=== PATIENT | male | born 1940 | race Caucasian/White ===

== ENCOUNTER 2019-03-21 12:07 | Inpatient (IN) | payer MEDICARE ==
[2019-03-21] MEDS ORDERED: SODIUM CHLORIDE 0.9% 500 ML 500 ML IV STA (12:18)
[2019-03-21] MEDS ORDERED: ONDANSETRON 4 MG/2 ML VIAL IVP STA (12:19)
[2019-03-21] MEDS ORDERED: MORPHINE SULFATE 4 MG/ML SYRINGE IVP STA ×2 (12:19→14:18)
[2019-03-21 12:58] LABS: Basophils # (A) 0.1 k/uL (0-0.2); Basophils % (A) 0 %; Eosinophils # (A) 0.2 k/uL (0-0.7); Eosinophils % (A) 1 %; HCT 47.6 % (39.0-53.0); HGB 15.6 gm/dL (13.0-17.5); Lymphocytes # (A) 0.8 k/uL (1.0-4.8); Lymphocytes % (A) 4 %; MCHC 32.8 g/dL (31.0-37.0); MCV 97.6 fL (80.0-100.0); Mean Platelet Volume 9.3; Monocytes # (A) 0.8 k/uL (0-1.0); Monocytes % (A) 4 %; Neutrophils # (A) 20.2 k/uL (1.3-7.7); Neutrophils % (A) 91 %; Platelet Count 220 k/uL (150-450); RBC 4.87 m/uL (4.30-5.90); RDW 12.8 % (11.5-15.5); WBC 22.2 k/uL (3.8-10.6)
[2019-03-21 13:07] LABS: ALT 22 U/L (21-72); AST 25 U/L (17-59); African American GFR (CKD) >90 (>60 ml/min/1.73 sqM); Albumin 4.3 g/dL (3.5-5.0); Alcohol 27 mg/dL; Alkaline Phosphatase 91 U/L (38-126); Anion Gap 11 mmol/L; Blood Urea Nitrogen 18 mg/dL (9-20); Calcium 9.1 mg/dL (8.4-10.2); Carbon Dioxide 21 mmol/L (22-30); Chloride 108 mmol/L (98-107); Glucose 99 mg/dL (74-99); Potassium 4.1 mmol/L (3.5-5.1); Sodium 140 mmol/L (137-145); Total Bilirubin 2.1 mg/dL (0.2-1.3); Total Protein 7.2 g/dL (6.3-8.2)
[2019-03-21 13:17] LABS: INR 0.9 (<1.2); Partial Thromboplastin Time 22.6 sec (22.0-30.0); Prothrombin Time 9.8 sec (9.0-12.0)
--- NOTE | 2019-03-21 13:30 | CT ---
EXAMINATION TYPE: CT brain addy alcaraz DATE OF EXAM: 03/21/2019 COMPARISON: None HISTORY: 78-year-old male pain after Fall from aprox [address] DLP: 1396.4 mGycm Automated exposure control for dose reduction was used. Technique: Examination of the head was done in axial plane without intravenous contrast. Coronal and sagittal reconstructions performed. CT of the cervical spine was obtained in axial plane without intravenous injection of contrast mater ial. Coronal and sagittal reformatted images were obtained from the axial views for evaluation of f ractures, spinal alignment and canal. FINDINGS: Head: There is no evidence of acute intracranial hemorrhage, acute ischemic changes, mass, mass-effect, or extra-axial fluid collection. There is no effacement of cerebral sulci or basal subarachnoid cister ns. There is no hydrocephalus. There is no midline shift. Escalante-white matter distinction is preserv ed. Mild to moderate cerebral cortical volume loss. Mild patchy white matter hypodensities in both cerebr al hemispheres. Mucosal thickening ethmoid air cells and trace within the left maxillary sinus. Rightward nasal septa l deviation. Orbits and globes are intact. Mastoid air cells well pneumatized. No calvarial fracture. Cervical spine: No craniocervical junction of the body, predental space widening, or prevertebral soft tissue swellin g. Degenerative changes at the C1 dens articulation. Moderate disc/endplate degenerative change throughout with scattered facet and uncovertebral joint ar thropathy. Disc osteophyte complex C3-C4 causes mild to moderate focal central spinal canal stenosis. Alignment is maintained. No acute fracture of the cervical spine. Vertebral moderate mild bilateral neuroforaminal stenoses, more severe on the right at C5-C6 and mode rate to severe on the right at C6-C7. Sagittal and coronal reformatted images confirm above findings. COMBINED IMPRESSION: 1. Mild to moderate cerebral atrophy and mild changes of chronic small vessel ischemic disease. No ac kim intracranial abnormality seen. 2. No acute fracture or malalignment of the cervical spine. Moderate multilevel spondylotic change. 3. Moderate chronic ethmoid sinus disease.
--- NOTE | 2019-03-21 13:34 | ED ---
Fall HPI - General Chief Complaint: Fall Stated Complaint: Fall Time Seen by Provider: 03/21/19 12:09 Source: patient, EMS, RN notes reviewed Mode of arrival: EMS Limitations: physical limitation - History of Present Illness Initial Comments: This a 78-year-old male presents emergency department via EMS chief complaint of a fall. Patient states that he is climbing up a ladder to a tree stand states that he had a chair in another hand states that he fell approximately 12-15 feet. Patient states he fell onto his left hip. Patient complains of bilateral left hip pain he denies head injury no loss conscious denies back, upper extremity injury. Patient states she's had no prior hip or pelvic fracture. Patient has no complaints of chest pain or shortness of breath. Patient denies benign blood thinners. Patient is went of abdominal pain including nausea vomiting diarrhea constipation. - Related Data Home Medications Medication Instructions Recorded Confirmed No Known Home Medications 03/21/19 03/21/19 Allergies Allergy/AdvReac Type Severity Reaction Status Date / Time No Known Allergies Allergy Verified 03/21/19 12:18 Review of Systems ROS Statement: Those systems with pertinent positive or pertinent negative responses have been documented in the HPI. ROS Other: All systems not noted in ROS Statement are negative. Past Medical History Past Medical History: No Reported History Additional Past Medical History / Comment(s): diverticulitis History of Any Multi-Drug Resistant Organisms: None Reported Past Surgical History: Hernia Repair Past Psychological History: No Psychological Hx Reported Smoking Status: Former smoker Past Alcohol Use History: Occasional Past Drug Use History: None Reported General Exam Limitations: no limitations General appearance: alert, in no apparent distress Head exam: Present: atraumatic, normocephalic, normal inspection Eye exam: Present: normal appearance, PERRL, EOMI. Absent: scleral icterus, conjunctival injection, periorbital swelling ENT exam: Present: normal exam, normal oropharynx, mucous membranes moist, TM's normal bilaterally, normal external ear exam Neck exam: Present: normal inspection. Absent: tenderness, meningismus, full ROM (Patient c-collar), lymphadenopathy Respiratory exam: Present: normal lung sounds bilaterally. Absent: respiratory distress, wheezes, rales, rhonchi, stridor, chest wall tenderness Cardiovascular Exam: Present: regular rate, normal rhythm, normal heart sounds. Absent: systolic murmur, diastolic murmur, rubs, gallop, clicks GI/Abdominal exam: Present: soft, normal bowel sounds. Absent: distended, tenderness, guarding, rebound, rigid Extremities exam: Present: other (Left hip is tender with palpation, leg is in a flexed position, neurovascular intact there is no obvious deformities upper or lower extremity otherwise) Back exam: Present: full ROM. Absent: tenderness, paraspinal tenderness, ve rtebral tenderness Neurological exam: Present: alert, oriented X3, CN II-XII intact, reflexes normal. Absent: motor sensory deficit Skin exam: Present: warm, dry, intact, normal color. Absent: rash Course Vital Signs 03/21/19 12:18 Temperature 98.0 F Pulse Rate 72 Respiratory 20 Rate Blood Pressure 199/96 O2 Sat by Pulse 98 Oximetry Medical Decision Making - Medical Decision Making 78 show male presents for a fall. X-ray, CT, labs are obtained. Patient has evidence of left IT fracture. I did discuss the case with on-call orthopedics in which the patient will be admitted patient will have surgical clearance by hospitalist - Lab Data Result diagrams: 03/21/19 12:42 03/21/19 12:42 Lab Results 03/21/19 03/21/19 03/21/19 Range/Units 12:42 12:42 12:42 WBC 22.2 H (3.8-10.6) k/uL RBC 4.87 (4.30-5.90) m/uL Hgb 15.6 (13.0-17.5) gm/dL Hct 47.6 (39.0-53.0) % MCV 97.6 (80.0-100.0) fL MCH 32.0 (25.0-35.0) pg MCHC 32.8 (31.0-37.0) g/dL RDW 12.8 (11.5-15.5) % Plt Count 220 (150-450) k/uL Neutrophils % 91 % Lymphocytes % 4 % Monocytes % 4 % Eosinophils % 1 % Basophils % 0 % Neutrophils # 20.2 H (1.3-7.7) k/uL Lymphocytes # 0.8 L (1.0-4.8) k/uL Monocytes # 0.8 (0-1.0) k/uL Eosinophils # 0.2 (0-0.7) k/uL Basophils # 0.1 (0-0.2) k/uL PT 9.8 (9.0-12.0) sec INR 0.9 (<1.2) APTT 22.6 (22.0-30.0) sec Sodium 140 (137-145) mmol/L Potassium 4.1 (3.5-5.1) mmol/L Chloride 108 H (98-107) mmol/L Carbon Dioxide 21 L (22-30) mmol/L Anion Gap 11 mmol/L BUN 18 (9-20) mg/dL Creatinine 0.68 (0.66-1.25) mg/dL Est GFR (CKD-EPI)AfAm >90 (>60 ml/min/1.73 sqM) Est GFR (CKD-EPI)NonAf >90 (>60 ml/min/1.73 sqM) Glucose 99 (74-99) mg/dL Calcium 9.1 (8.4-10.2) mg/dL Total Bilirubin 2.1 H (0.2-1.3) mg/dL AST 25 (17-59) U/L ALT 22 (21-72) U/L Alkaline Phosphatase 91 (38-126) U/L Troponin I (0.000-0.034) ng/mL Total Protein 7.2 (6.3-8.2) g/dL Albumin 4.3 (3.5-5.0) g/dL Serum Alcohol 27 mg/dL 03/21/19 Range/Units 12:42 WBC (3.8-10.6) k/uL RBC (4.30-5.90) m/uL Hgb (13.0-17.5) gm/dL Hct (39.0-53.0) % MCV (80.0-100.0) fL MCH (25.0-35.0) pg MCHC (31.0-37.0) g/dL RDW (11.5-15.5) % Plt Count (150-450) k/uL Neutrophils % % Lymphocytes % % Monocytes % % Eosinophils % % Basophils % % Neutrophils # (1.3-7.7) k/uL Lymphocytes # (1.0-4.8) k/uL Monocytes # (0-1.0) k/uL Eosinophils # (0-0.7) k/uL Basophils # (0-0.2) k/uL PT (9.0-12.0) sec INR (<1.2) APTT (22.0-30.0) sec Sodium (137-145) mmol/L Potassium (3.5-5.1) mmol/L Chloride (98-107) mmol/L Carbon Dioxide (22-30) mmol/L Anion Gap mmol/L BUN (9-20) mg/dL Creatinine (0.66-1.25) mg/dL Est GFR (CKD-EPI)AfAm (>60 ml/min/1.73 sqM) Est GFR (CKD-EPI)NonAf (>60 ml/min/1.73 sqM) Glucose (74-99) mg/dL Calcium (8.4-10.2) mg/dL Total Bilirubin (0.2-1.3) mg/dL AST (17-59) U/L ALT (21-72) U/L Alkaline Phosphatase (38-126) U/L Troponin I <0.012 (0.000-0.034) ng/mL Total Protein (6.3-8.2) g/dL Albumin (3.5-5.0) g/dL Serum Alcohol mg/dL Disposition Clinical Impression: Closed left hip fracture, Fall Disposition: ADMITTED IP TO THIS HOSP Condition: Fair Referrals: Claudia Jacobson MD [Primary Care Provider] - 1-2 days
--- NOTE | 2019-03-21 13:40 | XR ---
EXAMINATION TYPE: XR chest 1V portable DATE OF EXAM: 03/21/2019 Comparison: None Clinical History: 78-year-old male pain after trauma Findings: Partially erect exam. Heart is normal size. Aorta and pulmonary vasculature within normal limits. No consolidation, pneumothorax, or pleural effusion. Impression: No acute cardiopulmonary process.
--- NOTE | 2019-03-21 13:42 | XR ---
EXAMINATION TYPE: AP view pelvis and 2 views left hip DATE OF EXAM: 03/21/2019 COMPARISON: NONE HISTORY: 78-year-old male left hip pain after fall, trauma FINDINGS: Mild degenerative change of both hips. There is a comminuted intertrochanteric fracture of the proxim al left femur with mild medial angulation and disruption of the lateral wall. IMPRESSION: Angulated, comminuted intertrochanteric fracture proximal left femur with disruption of the lateral w all. Mild degenerative change at both hips.
[2019-03-21] MEDS ORDERED: HYDROcodone/APAP 5-325MG 1 EACH TAB PO PRN (14:16)
[2019-03-21] MEDS ORDERED: NALOXONE 0.4 MG/ML 1 ML VIAL IV PRN (14:16)
[2019-03-21] MEDS ORDERED: ONDANSETRON 4 MG/2 ML VIAL IVP PRN (14:16)
[2019-03-21] MEDS: SODIUM CHLORIDE 0.9% 1,000 ML IV SCH (14:36)
[2019-03-21 16:27] LABS: Appearance,Urine Clear (Clear); Bilirubin,Urine Negative (Negative); Blood,Urine Negative (Negative); Color,Urine Yellow; Glucose,Urine (UA) Negative (Negative); Ketones,Urine 2+ (Negative); Leukocyte Esterase,Urine Negative (Negative); Nitrite,Urine Negative (Negative); PH, Urine 5.5 (5.0-8.0); Protein,Urine Negative (Negative); Specific Gravity,Urine 1.018 (1.001-1.035); Urobilinogen,Urine <2.0 mg/dL (<2.0)
[2019-03-21 16:38] LABS: Cocaine Screen,Urine Not Detected (NotDetected); Phencyclidine Screen,Urine Not Detected (NotDetected); Urn Cannabinoid Scrn Not Detected (NotDetected)
[2019-03-21 16:39] LABS: Amphetamine Screen,Urine Not Detected (NotDetected); Barbiturate Screen,Urine Not Detected (NotDetected); Benzodiazepines Screen,Urine Not Detected (NotDetected); Methadone Screen, Urine Not Detected (NotDetected); Opiate Screen,Urine Detected (NotDetected); Oxycodone Screen, Urine Not Detected (NotDetected); Tricyclic Antidepressant,Urine Not Detected (NotDetected)
[2019-03-22] MEDS: SODIUM CHLORIDE 0.9% 1,000 ML IV SCH ×2 (03:31→17:20)
--- NOTE | 2019-03-22 09:03 | P.HPOR ---
History of Present Illness H&P Date: 03/22/19 Chief Complaint: Left hip pain This is a 78-year-old male who fell approximately 15 feet from a tree stand on 03/21/2019 landing directly on his left side. He complained of immediate left hip pain. He was brought to the emergency department and on evaluation and x- ray he is found to have a comminuted intertrochanteric fracture with extension into the subtrochanteric area. He is admitted to our service for surgical intervention and care. Past Medical History Past Medical History: No Reported History Additional Past Medical History / Comment(s): Diverticulitis. Pt states he goes to the doctor about every 10 yrs. History of Any Multi-Drug Resistant Organisms: None Reported Past Surgical History: Hernia Repair, Tonsillectomy Additional Past Surgical History / Comment(s): R inguinal hernia repair, colonoscopy, bilateral cataract removal/lens implants Past Anesthesia/Blood Transfusion Reactions: No Reported Reaction Smoking Status: Former smoker - Past Family History Father Additional Family Medical History / Comment(s): Father was a drinker. Mother Additional Family Medical History / Comment(s): Mother had 2 brain tumors. Medications and Allergies Home Medications Medication Instructions Recorded Confirmed Type No Known Home Medications 03/21/19 03/21/19 History Allergies Allergy/AdvReac Type Severity Reaction Status Date / Time No Known Allergies Allergy Verified 03/21/19 12:18 Physical Examination This is a pleasant 78-year-old male in no acute distress. He is alert and oriented 3. Exam of the head neck reveal no obvious deformity. He has full cervical spine motion without difficulty or pain. No pain with palpation about cervical spine or paraspinal musculature. Exam of the upper extremities is unremarkable. He has full shoulder, elbow, wrist and finger motion bilaterally. Neurovascular status the upper extremities is intact. Exam the lower extremities reveals swelling noted to the left thigh. No erythema or ecchymosis at this point. No obvious rotational deformity. Slight shortening to the left leg compared to the right. Pain with any motion of the left hip. He has full foot and ankle motion bilaterally. Neurovascular status to the lower extremities is intact. Results X-rays of the pelvis and left hip reveal a comminuted intertrochanteric fracture of the left hip with extension into the subtrochanteric region. No other fractures identified. - Labs Labs: Abnormal Lab Results - Last 24 Hours (Table) 03/21/19 03/21/19 03/21/19 Range/Units 12:42 12:42 16:15 WBC 22.2 H (3.8-10.6) k/uL Neutrophils # 20.2 H (1.3-7.7) k/uL Lymphocytes # 0.8 L (1.0-4.8) k/uL Chloride 108 H (98-107) mmol/L Carbon Dioxide 21 L (22-30) mmol/L Total Bilirubin 2.1 H (0.2-1.3) mg/dL Urine Ketones 2+ H (Negative) Urine Opiates Screen Detected H (NotDetected) H & H 03/21/19 Range/Units 12:42 Hgb 15.6 (13.0-17.5) gm/dL Hct 47.6 (39.0-53.0) % Coagulation 03/21/19 Range/Units 12:42 INR 0.9 (<1.2) Result Diagrams: 03/21/19 12:42 03/21/19 12:42 Assessment and Plan (1) Intertrochanteric fracture of left hip Current Visit: Yes Status: Acute Code(s): S72.142A - DISPLACED INTERTROCHANT ELLA FRACTURE OF LEFT FEMUR, INIT SNOMED Code(s): 840963136 (2) Closed left hip fracture Current Visit: Yes Status: Acute Code(s): S72.002A - FRACTURE OF UNSP PART OF NECK OF LEFT FEMUR, INIT SNOMED Code(s): 339404037 (3) Fall from height of greater than 3 feet Current Visit: Yes Status: Acute Code(s): W17.89XA - OTHER FALL FROM ONE LEVEL TO ANOTHER, INITIAL ENCOUNTER SNOMED Code(s): 0336663 Plan: The clinical and x-ray findings are discussed the patient. It is recommended that he undergo closed reduction with insertion of long intertrochanteric nail of the left hip. The procedure has been discussed in detail including the possible risks and outcomes. After discussion and consideration the patient elects to proceed with surgery. We are planning or tomorrow if cleared medically.
--- NOTE | 2019-03-22 13:30 | P.CONS ---
History of Present Illness - Reason for Consult Preoperative clearance, leukocytosis. - History of Present Illness 78-year-old is admitted for left hip comminuted fracture intertrochanteric fracture with extension to subacute trochanteric area after a fall of 15 feet on 03/13/2019. Patient quit smoking more than any other ago patient does drink alcohol upon further questioning he admits to drinking alcohol almost on daily basis about the 2-4 beers a day are more sometimes. Patient was pretty functional denied any previous cardiac history denied any active chest pain EKG did not show any acute ST-T wave changes. Patient is a low operative risk if he doesn't have withdrawals tonight. Patient also will be monitored for alcohol withdrawals. Review of Systems REVIEW OF SYSTEMS: CONSTITUTIONAL: No fever, no malaise, no fatigue. HEENT: No recent visual problems or hearing problems. Denied any sore throat. CARDIOVASCULAR: No chest pain, orthopnea, PND, no palpitations, no syncope. PULMONARY: No shortness of breath, no cough, no hemoptysis. GASTROINTESTINAL: No diarrhea, no nausea, no vomiting, no abdominal pain. NEUROLOGICAL: No headaches, no weakness, no numbness. HEMATOLOGICAL: Denies any bleeding or petechiae. GENITOURINARY: Denies any burning micturition, frequency, or urgency. MUSCULOSKELETAL/RHEUMATOLOGICAL: Pain in the left leg as mentioned above ENDOCRINE: Denies any polyuria or polydipsia. The rest of the 14-point review of systems is negative. Past Medical History Past Medical History: No Reported History Additional Past Medical History / Comment(s): Diverticulitis. Pt states he goes to the doctor about every 10 yrs. History of Any Multi-Drug Resistant Organisms: None Reported Past Surgical History: Hernia Repair, Tonsillectomy Additional Past Surgical History / Comment(s): R inguinal hernia repair, colonoscopy, bilateral cataract removal/lens implants Past Anesthesia/Blood Transfusion Reactions: No Reported Reaction Smoking Status: Former smoker - Past Family History Father Additional Family Medical History / Comment(s): Father was a drinker. Mother Additional Family Medical History / Comment(s): Mother had 2 brain tumors. Medications and Allergies Home Medications Medication Instructions Recorded Confirmed Type No Known Home Medications 03/21/19 03/21/19 History Allergies Allergy/AdvReac Type Severity Reaction Status Date / Time No Known Allergies Allergy Verified 03/21/19 12:18 Physical Exam Vitals: Vital Signs Temp Pulse Pulse Resp BP BP Pulse Ox 03/22/19 07:00 98.1 F 64 14 174/89 100 03/22/19 02:34 98.7 F 59 L 18 166/81 99 03/21/19 19:55 98.0 F 75 17 150/66 98 03/21/19 15:00 98 F 69 17 162/80 95 03/21/19 14:45 83 18 143/91 97 03/21/19 14:37 76 18 154/98 98 Intake and Output 03/21/19 03/22/19 03/22/19 22:59 06:59 14:59 Intake Total 180 Output Total 175 800 Balance -175 -620 Intake: Oral 180 Output: Urine 175 800 Other: Voiding Method Bedpan Urinal # Voids 2 PHYSICAL EXAMINATION: GENERAL: The patient is alert and oriented x3, not in any acute distress. Well developed, well nourished. HEENT: Pupils are round and equally reacting to light. EOMI. No scleral icterus. No conjunctival pallor. Normocephalic, atraumatic. No pharyngeal erythema. No thyromegaly. CARDIOVASCULAR: S1 and S2 present. No murmurs, rubs, or gallops. PULMONARY: Chest is clear to auscultation, no wheezing or crackles. ABDOMEN: Soft, nontender, nondistended, normoactive bowel sounds. No palpable organomegaly. MUSCULOSKELETAL: Deferred to orthopedic surgery EXTREMITIES: No cyanosis, clubbing, or pedal edema. NEUROLOGICAL: Gross neurological examination did not reveal any focal deficits. SKIN: No rashes. Results CBC & Chem 7: 03/21/19 12:42 03/21/19 12:42 Labs: Abnormal Lab Results - Last 24 Hours (Table) 03/21/19 Range/Units 16:15 Urine Ketones 2+ H (Negative) Urine Opiates Screen Detected H (NotDetected) Assessment and Plan Plan: Preoperative clearance: Patient is low operative risk as long as he doesn't have withdrawals tonight. No further testing is necessary. Patient should be able to get surgery for intertrochanteric fracture. -Alcohol abuse: Counseling was provided and will monitor for alcohol withdrawal -Leukocytosis secondary to fall no evidence of infection at this time. -DVT prophylaxis: As per primary service
[2019-03-22] MEDS: MORPHINE SULFATE 4 MG/ML SYRINGE IV PRN ×2 (14:18→20:23)
[2019-03-23] MEDS: MORPHINE SULFATE 4 MG/ML SYRINGE IV PRN ×2 (07:02→10:44)
--- NOTE | 2019-03-23 13:47 | P.PN ---
Subjective 78-year-old is admitted for left hip comminuted fracture intertrochanteric fracture with extension to subacute trochanteric area after a fall of 15 feet on 03/13/2019. Patient quit smoking more than any other ago patient does drink alcohol upon further questioning he admits to drinking alcohol almost on daily basis about the 2-4 beers a day are more sometimes. Patient was pretty functional denied any previous cardiac history denied any active chest pain EKG did not show any acute ST-T wave changes. Patient is a low operative risk if he doesn't have withdrawals tonight. Patient also will be monitored for alcohol withdrawals. 03/23/2019 Patient will undergo surgical correction for his intertrochanteric fracture on the left side. Constitutional: Denied any fatigue denied any fever. Cardio vascular: denied any chest pain, palpitations Gastrointestinal denied any nausea vomiting Pulmonary: Denied any shortness of breath cough Neurologic denied any new focal deficits All inpatient medications were reviewed and appropriate changes in these medications as dictated in the interval history and assessment and plan. Objective - Vital Signs Vital signs: Vital Signs Temp 97.8 F 03/23/19 07:00 Pulse 66 03/23/19 07:00 Resp 16 03/23/19 07:00 BP 160/80 03/23/19 07:00 Pulse Ox 96 03/23/19 07:00 Intake & Output 03/22/19 03/23/19 03/23/19 18:59 06:59 18:59 Intake Total 652 Output Total 1950 800 600 Balance -1298 -800 -600 Intake: Oral 652 Output: Urine 1950 800 600 Other: Voiding Method Urinal Urinal # Voids 2 - Exam PHYSICAL EXAMINATION: GENERAL: The patient is alert and oriented x3, not in any acute distress. Well developed, well nourished. HEENT: Pupils are round and equally reacting to light. EOMI. No scleral icterus. No conjunctival pallor. Normocephalic, atraumatic. No pharyngeal erythema. No thyromegaly. CARDIOVASCULAR: S1 and S2 present. No murmurs, rubs, or gallops. PULMONARY: Chest is clear to auscultation, no wheezing or crackles. ABDOMEN: Soft, nontender, nondistended, normoactive bowel sounds. No palpable organomegaly. MUSCULOSKELETAL: Deferred to orthopedic surgery EXTREMITIES: No cyanosis, clubbing, or pedal edema. NEUROLOGICAL: Gross neurological examination did not reveal any focal deficits. SKIN: No rashes. - Labs CBC & Chem 7: 03/21/19 12:42 03/21/19 12:42 Assessment and Plan Plan: Preoperative clearance: Patient is low operative risk as long as he doesn't have withdrawals tonight. No further testing is necessary. Patient should be able to get surgery for intertrochanteric fracture. -Alcohol abuse: Counseling was provided and will monitor for alcohol withdrawal -Leukocytosis secondary to fall no evidence of infection at this time. -DVT prophylaxis: As per primary service
[2019-03-23] MEDS ORDERED: LACTATED RINGERS 1,000 ML IV ONE ×2 (13:56→16:07)
[2019-03-23] MEDS ORDERED: fentaNYL (PF) 50 MCG/ML 2 ML AMP ONE (14:21)
[2019-03-23] MEDS ORDERED: MIDAZOLAM 2 MG/2 ML VIAL ONE (14:21)
[2019-03-23] MEDS ORDERED: PROPOFOL 10 MG/ML 20 ML VIAL IV ONE (14:21)
[2019-03-23] MEDS ORDERED: PHENYLEPHRINE-0.9% NACL SYG 1 MG/10 ML SYRINGE ONE (14:21)
[2019-03-23] MEDS ORDERED: KETAMINE 10 MG/ML 20 ML VIAL ONE (14:21)
[2019-03-23] MEDS ORDERED: ceFAZolin 3,000 MG in SODIUM CHLORIDE 0.9% IRRIGATIO 3,000 ML IRRIGATION ONE (15:03)
[2019-03-23] MEDS ORDERED: TEMAZEPAM 15 MG CAP PO PRN (16:49)
[2019-03-23] MEDS ORDERED: NALOXONE 0.4 MG/ML 1 ML VIAL IV PRN (16:49)
[2019-03-23] MEDS ORDERED: HYDROmorphone 0.5 MG/0.5 ML SYRINGE IVP PRN ×3 (16:49)
[2019-03-23] MEDS ORDERED: HYDROcodone/APAP 5-325MG 1 EACH TAB PO PRN (16:49)
[2019-03-23] MEDS: SODIUM CHLORIDE 0.9% 1,000 ML IV SCH ×2 (17:33→20:08)
[2019-03-23 18:27] LABS: Basophils # (A) 0.1 k/uL (0-0.2); Basophils % (A) 0 %; Eosinophils # (A) 0.1 k/uL (0-0.7); Eosinophils % (A) 1 %; HCT 36.7 % (39.0-53.0); Lymphocytes # (A) 0.9 k/uL (1.0-4.8); Lymphocytes % (A) 6 %; MCH 32.4 pg (25.0-35.0); MCHC 33.2 g/dL (31.0-37.0); MCV 97.5 fL (80.0-100.0); Mean Platelet Volume 10.6; Monocytes % (A) 7 %; Neutrophils # (A) 11.5 k/uL (1.3-7.7); Neutrophils % (A) 85 %; Platelet Count 191 k/uL (150-450); RBC 3.77 m/uL (4.30-5.90); RDW 13.3 % (11.5-15.5); WBC 13.6 k/uL (3.8-10.6)
[2019-03-23 18:39] LABS: HGB 12.2 gm/dL (13.0-17.5)
[2019-03-23] MEDS: ASPIRIN 325 MG TAB PO SCH (20:11)
[2019-03-23] MEDS: SENNOSIDES-DOCUSATE SODIUM 1 EACH TAB PO SCH (20:11)
[2019-03-23] MEDS: LACTATED RINGERS 1,000 ML IV SCH (20:11)
--- NOTE | 2019-03-23 21:32 | XR ---
EXAMINATION TYPE: XR femur LT, FL guidance operating room DATE OF EXAM: 03/23/2019 COMPARISON: NONE HISTORY: 78-year-old male ORIF left femur FINDINGS: 5 images during antegrade intramedullary nailing with hip screw fixation proximal left femur fracture with lateral wall disruption. FLUOROSCOPY Fluoroscopy time of 4 minutes 21 seconds was used during left femur internal fixation. 5 image/s doc ument/s the procedure. IMPRESSION: Fluoroscopy as above.
[2019-03-24] MEDS: HYDROcodone/APAP 5-325MG 1 EACH TAB PO PRN ×3 (00:04→20:32)
[2019-03-24] MEDS: LACTATED RINGERS 1,000 ML IV SCH ×3 (07:19→20:32)
[2019-03-24] MEDS: SODIUM CHLORIDE 0.9% 1,000 ML IV SCH ×2 (07:21→20:29)
[2019-03-24] MEDS: ASPIRIN 325 MG TAB PO SCH ×2 (08:59→20:32)
--- NOTE | 2019-03-24 10:55 | P.PN ---
Subjective Progress Note Date: 03/24/19 Principal diagnosis: Subtrochanteric fracture left hip. This is a 78-year-old male with history of fall from about 15 feet, landing on his left hip. He sustained a comminuted subtrochanteric fracture of the left proximal femur was admitted to our service on 03/21/2019. He is postop day 1 status post close reduction with insertion of the long intertrochanteric nail of the left hip/proximal femur. The patient is stable from an orthopedic standpoint. He is complaining of pain and lightheadedness when trying to get up today. He is having difficulty moving in bed. His vital signs and labs are stable. Objective - Vital Signs Vital signs: Vital Signs Temp 98.5 F 03/24/19 08:55 Pulse 77 03/24/19 08:55 Resp 16 03/24/19 08:55 BP 158/72 03/24/19 08:55 Pulse Ox 98 03/24/19 08:55 Intake & Output 03/23/19 03/24/19 03/24/19 18:59 06:59 18:59 Intake Total 1751 900 Output Total 850 300 Balance 901 600 Intake: IV 1751 Sodium Chloride 0.9% 1, 600 000 ml @ 75 mls/hr IV . [id number] SHELDON Rx#:[id number] Intake, IV Titration 900 Amount Lactated Ringers 1,000 ml 900 @ 100 mls/hr IV .Q10H [facility]LDON Rx#:[id number] Output: Urine 600 300 Estimated Blood Loss 250 Other: Voiding Method Urinal Urinal - Exam This is a pleasant 78-year-old male in no acute distress. He is alert and oriented 3. Exam of the left lower extremity reveals swelling to the left thigh. There is no erythema or ecchymosis. Incisions are clean, dry with no drainage. Dermabond glue is intact. He has full foot and ankle motion without difficulty or pain. Pedal pulses +2/4. Neurovascular status to the lower extremities is intact. - Labs CBC & Chem 7: 03/23/19 17:11 03/21/19 12:42 Labs: Abnormal Lab Results - Last 24 Hours (Table) 03/23/19 Range/Units 17:11 WBC 13.6 H (3.8-10.6) k/uL RBC 3.77 L (4.30-5.90) m/uL Hgb 12.2 L D (13.0-17.5) gm/dL Hct 36.7 L (39.0-53.0) % Neutrophils # 11.5 H (1.3-7.7) k/uL Lymphocytes # 0.9 L (1.0-4.8) k/uL Assessment and Plan (1) Intertrochanteric fracture of left hip Current Visit: Yes Status: Acute Code(s): S72.142A - DISPLACED INTERTROCHANTERIC FRACTURE OF LEFT FEMUR, INIT SNOMED Code(s): 336487074 (2) Closed left hip fracture Current Visit: Yes Status: Acute Code(s): S72.002A - FRACTURE OF UNSP PART OF NECK OF LEFT FEMUR, INIT SNOMED Code(s): 031977965 (3) Fall from height of greater than 3 feet Current Visit: Yes Status: Acute Code(s): W17.89XA - OTHER FALL FROM ONE LEVEL TO ANOTHER, INITIAL ENCOUNTER SNOMED Code(s): 3336920 Plan: The clinical findings are discussed the patient. I have asked about the trapezium of his bed to help him move more freely in bed. He is toe-touch weightbearing to the lower extremity with a walker. We discussed the possibility of needing inpatient rehab at discharge. Continue current care. We'll continue to follow.
--- NOTE | 2019-03-24 20:30 | PN ---
PROGRESS NOTE DATE OF SERVICE: 03/24/2019 This 78-year-old gentleman with a past medical history of multiple medical problems, admitted with a fall from 15 feet, had intertrochanteric fracture of the left hip. The patient underwent closed reduction with insertion of long intertrochanteric nail of the left hip with C-arm. The patient closely monitored. The patient also has significant history of alcohol. White count is elevated to 13.6, it was 22.2 on presentation. Serum alcohol was 27 on presentation. A chest x-ray done at the time of admission which was reviewed personally by me, showed no acute symptoms at this time. Patient will be closely monitored. PAST MEDICAL HISTORY: Reviewed. REVIEW OF SYSTEMS: CARDIOVASCULAR: No angina or palpitations. RESPIRATORY: As mentioned earlier. GI: No nausea. : No dysuria. NERVOUS SYSTEM: As mentioned earlier. CURRENT MEDICATIONS ARE: 1. [place] 5 mg q.6h p.r.n. 2. Aspirin 320 mg b.i.d. 3. Dilaudid 0.125 mg p.r.n. 4. Lactated Ringer. 5. Narcan. 6. Zofran. 7. Senokot-S. 8. Restoril. PHYSICAL EXAM: Patient is alert oriented. Pulse 76, blood pressure 130/60, respiration 16, temperature 98.4, pulse ox 98% on room air. HEENT: Conjunctivae normal. Oral mucosa moist. NECK: No jugular venous distention. No lymph node enlargement. CARDIOVASCULAR: S1, S2. RESPIRATORY: Diminished breath sounds at the bases. A few scattered rhonchi and crackles. ABDOMEN: Soft, nontender. LEGS: Status post surgery on the left hip. NERVOUS SYSTEM: No focal deficits. LABS: WBC 13.2, hemoglobin 12.2. Other labs are noted. UA noted. ASSESSMENT: 1. Fall and left hip fracture status post closed reduction with insertion of the long intramedullary nail. 2. History of ETOH. 3. Increased WBC. 4. History of diverticulitis. 5. History of tonsillectomy. 6. Previous history of nicotine dependence. RECOMMENDATIONS AND DISCUSSION: In this 78-year-old gentleman who presented with multiple complex medical issues, we will monitor the patient closely, continue the current management. I recommend add heparin to the current regimen. Otherwise, proton pump inhibitors, Ativan for any DT precautions, multivitamin supplements, PT/OT evaluation. Closely follow. Further recommendations to follow Recommend repeat labs also. MMODL / IJN: [id number] /
[2019-03-24] MEDS: HEPARIN SODIUM,PORCINE 5,000 UNIT/ML 1 ML VIAL SQ SCH (20:32)
[2019-03-24] MEDS: SENNOSIDES-DOCUSATE SODIUM 1 EACH TAB PO SCH (20:32)
[2019-03-25 07:22] LABS: African American GFR (CKD) >90 (>60 ml/min/1.73 sqM); Anion Gap 6 mmol/L; Blood Urea Nitrogen 16 mg/dL (9-20); Calcium 8.2 mg/dL (8.4-10.2); Carbon Dioxide 28 mmol/L (22-30); Chloride 103 mmol/L (98-107); Glucose 109 mg/dL (74-99); Potassium 3.7 mmol/L (3.5-5.1); Sodium 137 mmol/L (137-145)
[2019-03-25] MEDS: HEPARIN SODIUM,PORCINE 5,000 UNIT/ML 1 ML VIAL SQ SCH ×2 (08:56→19:38)
[2019-03-25] MEDS: ASPIRIN 325 MG TAB PO SCH ×2 (08:57→19:38)
[2019-03-25] MEDS: MULTIVITAMINS, THERA 1 EACH TAB PO SCH (08:57)
[2019-03-25] MEDS: THIAMINE 100 MG TAB PO SCH (08:57)
[2019-03-25] MEDS: LACTATED RINGERS 1,000 ML IV SCH ×2 (08:58→19:40)
[2019-03-25] MEDS: PANTOPRAZOLE 40 MG TABLET PO SCH (08:58)
[2019-03-25] MEDS: HYDROcodone/APAP 5-325MG 1 EACH TAB PO PRN ×2 (09:00→16:09)
--- NOTE | 2019-03-25 10:40 | P.PN ---
Subjective Progress Note Date: 03/25/19 Principal diagnosis: Subtrochanteric fracture left hip. This is a 78-year-old male with history of fall from about 15 feet, landing on his left hip. He sustained a comminuted subtrochanteric fracture of the left proximal femur was admitted to our service on 03/21/2019. He is postop day 2 status post close reduction with insertion of the long intertrochanteric nail of the left hip/proximal femur. The patient is stable from an orthopedic standpoint. He has been getting up and ambulating to the bathroom pretty much on his own, maintaining toe-touch weightbearing to the lower extremity. He has no new complaints or concerns today. Vital signs are stable. Objective - Vital Signs Vital signs: Vital Signs Temp 98.1 F 03/25/19 07:00 Pulse 103 H 03/25/19 07:00 Resp 18 03/25/19 07:00 BP 132/67 03/25/19 07:00 Pulse Ox 94 L 03/25/19 07:00 Intake & Output 03/24/19 03/25/19 03/25/19 18:59 06:59 18:59 Intake Total 1125 Output Total 350 Balance 775 Intake: Intake, IV Titration 1125 Amount Sodium Chloride 0.9% 1, 225 000 ml @ 75 mls/hr IV . [id number] [facility] Rx#:[id number] ceFAZolin 2 gm In Sodium 900 Chloride 0.9% 50 ml @ 100 mls/hr IVPB Q8HR [facility] Rx# :[id number] Output: Urine 350 Other: Voiding Method Urinal # Voids 1 - Exam This is a pleasant 78-year-old male in no acute distress. He is alert and oriented 3. Exam of the left lower extremity reveals swelling to the left thigh. There is no erythema or ecchymosis. Incisions are clean, dry with no drainage. Dermabond glue is intact. He has full foot and ankle motion without difficulty or pain. Pedal pulses +2/4. Neurovascular status to the lower extremities is intact. - Labs CBC & Chem 7: 03/23/19 17:11 03/25/19 06:47 Labs: Abnormal Lab Results - Last 24 Hours (Table) 03/25/19 Range/Units 06:47 Glucose 109 H (74-99) mg/dL Calcium 8.2 L (8.4-10.2) mg/dL Assessment and Plan (1) Intertrochanteric fracture of left hip Current Visit: Yes Status: Acute Code(s): S72.142A - DISPLACED INTERTROCHANTERIC FRACTURE OF LEFT FEMUR, INIT SNOMED Code(s): 502089771 (2) Closed left hip fracture Current Visit: Yes Status: Acute Code(s): S72.002A - FRACTURE OF UNSP PART OF NECK OF LEFT FEMUR, INIT SNOMED Code(s): 004792299 (3) Fall from height of greater than 3 feet Current Visit: Yes Status: Acute Code(s): W17.89XA - OTHER FALL FROM ONE LEVEL TO ANOTHER, INITIAL ENCOUNTER SNOMED Code(s): 9390195 Plan: The clinical findings are discussed the patient. Continue with physical therapy and orthopedic care. We will see how he does today and tomorrow with therapy to decide whether he may go home or rehab.
[2019-03-25 12:25] LABS: Basophils % (A) 0 %; Eosinophils # (A) 0.2 k/uL (0-0.7); Eosinophils % (A) 2 %; HGB 10.3 gm/dL (13.0-17.5); Lymphocytes # (A) 0.6 k/uL (1.0-4.8); Lymphocytes % (A) 5 %; MCH 32.6 pg (25.0-35.0); MCHC 33.4 g/dL (31.0-37.0); MCV 97.5 fL (80.0-100.0); Mean Platelet Volume 11.9; Monocytes # (A) 0.9 k/uL (0-1.0); Monocytes % (A) 7 %; Neutrophils # (A) 10.5 k/uL (1.3-7.7); Neutrophils % (A) 86 %; Platelet Count 186 k/uL (150-450); RBC 3.18 m/uL (4.30-5.90); RDW 13.6 % (11.5-15.5); WBC 12.3 k/uL (3.8-10.6)
[2019-03-25] MEDS: SODIUM CHLORIDE 0.9% 1,000 ML IV SCH ×2 (12:45→19:40)
[2019-03-25] MEDS: FOLIC ACID 1 MG TAB PO SCH (12:53)
--- NOTE | 2019-03-25 18:59 | PN ---
PROGRESS NOTE DATE OF SERVICE: 03/25/2019 This 78-year-old gentleman who was admitted with a fall and left hip fracture, had closed reduction and insertion of the long intramedullary nail. The patient is improving significantly. No chest pain. No palpitations. No fever. EXAM: Alert and oriented x3. Pulse 103, blood pressure 130/60, respiration 18, temp 98.1, pulse ox 94% on room air. HEENT: Conjunctivae normal. Oral mucosa moist. NECK: No jugular venous distention. No lymph node enlargement. CARDIOVASCULAR: S1, S2. RESPIRATORY: Diminished breath sounds at the bases. No rhonchi, no crackles. ABDOMEN: Soft, nontender. LEGS: Status post surgery on the left leg. NERVOUS SYSTEM: No focal deficits. LABS: WBC 12.2, hemoglobin 10.3. UA noted. ASSESSMENT: 1. Fall and left hip fracture status post closed reduction, insertion of the long intramedullary nail. 2. History of ETOH. 3. Increased WBC. 4. History of diverticulitis. 5. History of tonsillectomy. 6. Previous history of nicotine dependence. RECOMMENDATIONS AND DISCUSSION: Recommend to continue current medications, continue to monitor, continue symptomatic treatment. Otherwise, recommend repeat labs. The patient seems to be improving. Will closely follow with Orthopedic surgery. Further recommendations to follow. MMODL / IJN: [id number] /
[2019-03-25] MEDS: SENNOSIDES-DOCUSATE SODIUM 1 EACH TAB PO SCH (19:38)
[2019-03-26] MEDS: LACTATED RINGERS 1,000 ML IV SCH (07:06)
[2019-03-26] MEDS: HEPARIN SODIUM,PORCINE 5,000 UNIT/ML 1 ML VIAL SQ SCH ×2 (08:24→20:31)
[2019-03-26] MEDS: MULTIVITAMINS, THERA 1 EACH TAB PO SCH (08:25)
[2019-03-26] MEDS: FOLIC ACID 1 MG TAB PO SCH (08:25)
[2019-03-26] MEDS: ASPIRIN 325 MG TAB PO SCH ×2 (08:25→20:31)
[2019-03-26] MEDS: PANTOPRAZOLE 40 MG TABLET PO SCH (08:25)
[2019-03-26] MEDS: THIAMINE 100 MG TAB PO SCH (08:25)
[2019-03-26] MEDS: HYDROcodone/APAP 5-325MG 1 EACH TAB PO PRN ×2 (08:32→20:31)
--- NOTE | 2019-03-26 09:37 | P.PN ---
Subjective Progress Note Date: 03/26/19 Principal diagnosis: Subtrochanteric fracture left hip. This is a 78-year-old male with history of fall from about 15 feet, landing on his left hip. He sustained a comminuted subtrochanteric fracture of the left proximal femur was admitted to our service on 03/21/2019. He is postop day 3 status post closed reduction with insertion of the long intertrochanteric nail of the left hip/proximal femur. The patient is stable from an orthopedic standpoint. He has been getting up and ambulating to the bathroom pretty much on his own, maintaining toe-touch weightbearing to the lower extremity. He has no new complaints or concerns today. Vital signs are stable. Objective - Vital Signs Vital signs: Vital Signs Temp 98.2 F 03/26/19 07:00 Pulse 96 03/26/19 07:00 Resp 16 03/26/19 07:00 BP 153/72 03/26/19 07:00 Pulse Ox 96 03/26/19 07:00 Intake & Output 03/25/19 03/26/19 03/26/19 18:59 06:59 18:59 Intake Total 200 150 Output Total 700 Balance 200 -550 Intake: IV 150 Sodium Chloride 0.9% 1, 150 000 ml @ 75 mls/hr IV . [id number] [facility] Rx#:[id number] Oral 200 Output: Urine 700 Other: Voiding Method Urinal # Voids 3 - Exam This is a pleasant 78-year-old male in no acute distress. He is alert and oriented 3. Exam of the left lower extremity reveals swelling to the left thigh. There is ecchymosis to his inner thigh and groin. No erythema or ecchymosis to the lateral thigh. Incisions are clean, dry with no drainage. Dermabond glue is intact. He has full foot and ankle motion without difficulty or pain. Pedal pulses +2/4. Neurovascular status to the lower extremities is intact. - Labs CBC & Chem 7: 03/25/19 06:47 03/25/19 06:47 Labs: Abnormal Lab Results - Last 24 Hours (Table) 03/25/19 Range/Units 06:47 WBC 12.3 H (3.8-10.6) k/uL RBC 3.18 L (4.30-5.90) m/uL Hgb 10.3 L (13.0-17.5) gm/dL Hct 31.0 L (39.0-53.0) % Neutrophils # 10.5 H (1.3-7.7) k/uL Lymphocytes # 0.6 L (1.0-4.8) k/uL Assessment and Plan (1) Intertrochanteric fracture of left hip Current Visit: Yes Status: Acute Code(s): S72.142A - DISPLACED INTERTROCHANTERIC FRACTURE OF LEFT FEMUR, INIT SNOMED Code(s): 197398837 (2) Closed left hip fracture Current Visit: Yes Status: Acute Code(s): S72.002A - FRACTURE OF UNSP PART OF NECK OF LEFT FEMUR, INIT SNOMED Code(s): 379268305 (3) Fall from height of greater than 3 feet Current Visit: Yes Status: Acute Code(s): W17.89XA - OTHER FALL FROM ONE LEVEL TO ANOTHER, INITIAL ENCOUNTER SNOMED Code(s): 3342716 Plan: The clinical findings are discussed the patient. Continue with physical therapy and orthopedic care. We will see how he does today and tomorrow with therapy to decide whether he may go home or rehab.
--- NOTE | 2019-03-26 16:05 | PN ---
PROGRESS NOTE DATE OF SERVICE: 03/26/2019 This 78-year-old gentleman who was admitted with a fall and hip fracture, is being closely monitored at this time. The patient had history of EtOH but, however, the patient is getting stronger here and would like to return home rather than ECF. No chest pain. No palpitations. No fever. Orthopedic surgery is following the patient closely. EXAM: Alert and oriented x3. Pulse 90, blood pressure 153/72, respirations 16, temperature 98.2, pulse ox 96% on room air. HEENT: Conjunctivae normal. Oral mucosa moist. NECK: No jugular venous distention. No lymph node enlargement. CARDIOVASCULAR: S1, S2. RESPIRATORY: Diminished breath sounds at the bases. Bilateral scattered rhonchi, no crackles. ABDOMEN: Soft, nontender. LEGS: Status post surgery. NERVOUS SYSTEM: No focal deficits. LAB STUDIES: WBC 12.2, hemoglobin 10.3. ASSESSMENT: 1. Fall and left hip fracture status post closed reduction, insertion of the long intramedullary nail. 2. History of ETOH. 3. Increased WBC. 4. History of diverticulitis. 5. History of tonsillectomy. 6. Previous history of nicotine dependence. RECOMMENDATIONS AND DISCUSSION: I recommend to continue current medications, continue to monitor, symptomatic treatment. Otherwise, at this time I recommend PT/OT evaluation. Repeat labs. Otherwise, follow closely with Orthopedic surgery. DVT prophylaxis. See orders for further details. Further recommendations to follow. MMODL / IJN: [id number] /
[2019-03-26] MEDS: SENNOSIDES-DOCUSATE SODIUM 1 EACH TAB PO SCH (20:31)
[2019-03-27 07:48] VITALS: BP 147/71; PULSE 81; RESP 16; TEMP 99.4
[2019-03-27] MEDS: THIAMINE 100 MG TAB PO SCH (08:44)
[2019-03-27] MEDS: HEPARIN SODIUM,PORCINE 5,000 UNIT/ML 1 ML VIAL SQ SCH (08:44)
[2019-03-27] MEDS: ASPIRIN 325 MG TAB PO SCH (08:44)
[2019-03-27] MEDS: FOLIC ACID 1 MG TAB PO SCH (08:44)
[2019-03-27] MEDS: PANTOPRAZOLE 40 MG TABLET PO SCH (08:44)
[2019-03-27] MEDS: MULTIVITAMINS, THERA 1 EACH TAB PO SCH (08:45)
--- NOTE | 2019-03-27 10:50 | P.DS ---
Providers Date of admission: 03/21/19 14:14 Expected date of discharge: 03/27/19 Attending physician: Sid Lambert Consults: 03/21/19 14:17 Consult Physician Urgent Consulting Provider: Yulissa Ochoa Consult Reason/Comments: Medical management, surgical clearance Do you want consulting provider notified?: Yes Primary care physician: Claudia Jacobson - Discharge Diagnosis(es) (1) Intertrochanteric fracture of left hip Current Visit: Yes Status: Acute (2) Closed left hip fracture Current Visit: Yes Status: Acute (3) Fall from height of greater than 3 feet Current Visit: Yes Status: Acute Hospital Course: This is a 78-year-old male who is admitted to [facility] on 03/21/2019 after falling and sustaining injury to the left hip. On exam and x- ray in the emergency department he is found to have an subtrochanteric fracture of the left hip. He is admitted to our service for surgical intervention and care. Patient is taken to surgery for close reduction and insertion of subtrochanteric nail of the left hip. The procedure was performed without complication or sequelae. The patient is doing fairly well postoperatively. Vital signs and labs are stable on postoperative day #4. Patient is discharged to home in good condition. Please see med rec for accurate list of discharge medications. Patient Condition at Discharge: Fair Plan - Discharge Summary Discharge Rx Participant: No New Discharge Prescriptions: New Aspirin 325 mg PO BID #60 tab HYDROcodone/APAP 7.5-325MG [[place] 7.5-325] 1 - 2 tab PO Q4-6H PRN #50 tab PRN Reason: Pain Sennosides-Docusate Sodium [Senokot-S] 1 tab PO BID #60 tablet Discharge Medication List Aspirin 325 mg PO BID #60 tab 03/26/19 [Rx] HYDROcodone/APAP 7.5-325MG [[place] 7.5-325] 1 - 2 tab PO Q4-6H PRN #50 tab 03/26/19 [Rx] Sennosides-Docusate Sodium [Senokot-S] 1 tab PO BID #60 tablet 03/26/19 [Rx] Follow up Appointment(s)/Referral(s): Charlene Coyle, ULYSSES [PHYSICIAN PREDICTIVE MAINTENANCE TECHNICIAN] - 2 Weeks [facility], [NON-STAFF] - Claudia Jacobson MD [Primary Care Provider] - 1-2 days Discharge Disposition: HOME WITH HOME HEALTH SERVICES
[2019-03-27] MEDS: HYDROcodone/APAP 5-325MG 1 EACH TAB PO PRN (12:54)
--- NOTE | 2019-03-27 16:16 | P.PN ---
Subjective Progress Note Date: 03/27/19 Principal diagnosis: This is a 78-year-old male who was admitted for left hip fracture and was being closely monitored. Following along with orthopedics. Patient has been getting up with no assistance. Patient states that his pain is minimal and being managed. Patient would like to go home today. Patient is denying inpatient or subacute rehab at this time as he feels it is not necessary. Patient will be followed with home care once he follows up with his primary care provider. Patient states that he has friends that are nearby that can help him if needed. Patient denies any chest pain, shortness of breath, or palpitations at this time. Patient denies any nausea or vomiting and has been tolerating diet. Patient remains afebrile. Guarded prognosis. Objective - Vital Signs Vital signs: Vital Signs Temp 99.4 F 03/27/19 07:21 Pulse 81 03/27/19 07:21 Resp 16 03/27/19 07:21 BP 147/71 03/27/19 07:21 Pulse Ox 94 L 03/27/19 07:21 Intake & Output 03/26/19 03/27/19 03/27/19 18:59 06:59 18:59 Intake Total 600 200 Output Total 270 Balance 600 -270 200 Intake: IV 600 Sodium Chloride 0.9% 1, 600 000 ml @ 75 mls/hr IV . [id number] [facility] Rx#:[id number] Oral 200 Output: Urine 270 Other: Voiding Method Urinal - Exam Gen: This is a 78-year-old male sitting up in the chair in no acute distress. Vital signs are stable. HEENT: Head is atraumatic, normocephalic. Pupils equal, round. Sclerae is anicteric. NECK: Supple. No JVD. No lymphadenopathy. No thyromegaly. LUNGS: Diminished breath sounds at the bases otherwise clear to auscultation. No wheezes or rhonchi. No intercostal retractions. HEART: Regular rate and rhythm. No murmur. ABDOMEN: Soft. Bowel sounds are present. No masses. No tenderness. EXTREMITIES: No pedal edema. No calf tenderness. Left leg upper thigh has 2 dressings that are dry and intact. No swelling or edema noted. NEUROLOGICAL: Patient is awake, alert and oriented x3. Cranial nerves 2 through 12 are grossly intact. - Labs CBC & Chem 7: 09/01/19 06:47 03/25/19 06:47 Assessment and Plan Assessment: Fall and left hip fracture status post closed reduction, insertion of a long intramedullary nail History of EtOH Increased WBC History of diverticulitis History of tonsillectomy Previous history of nicotine dependence Recommendations and discussion Recommend continue current medications, continue to monitor, and continue symptomatic treatment. Continue working with PT/OT. Follow closely with orthopedic surgery and await for possible discharge today. Discussed with the patient today about possible rehab for strength and mobility and patient refuses at this time. Patient states that he is family and friends that live close by that can help is needed. Homecare will be following the patient upon discharge. Guarded prognosis. Probable discharge today.
--- NOTE | 2019-04-11 08:10 | P.OP ---
Procedure(s) Performed: PREOPERATIVE DIAGNOSIS: Left hip intertrochanteric/subtrochanteric fracture. POSTOPERATIVE DIAGNOSIS: Left hip intertrochanteric/subtrochanteric fracture. OPERATION: Left hip intertrochanteric/subtrochanteric fracture closed reduction and intramedullary nailing using long Synthes IT nail. RADAR SYSTEMS ENGINEER: Charlene Coyle PA-C (assistance with: Patient positioning, retraction, exposure, reduction, fixation, irrigation, hemostasis, closure, dressing) ANESTHESIA: General ESTIMATED BLOOD LOSS: 100 mL. SPECIMENS REMOVED: None COMPLICATIONS: None OPERATIVE FINDINGS: See below INDICATIONS: Mr. Christine is a 78-year-old male with a history of falling and sustaining a fracture of left hip. The fracture is a comminuted fracture involving the intertrochanteric and subtrochanteric regions of the proximal femur. The fracture is displaced and the patient is in need of surgical fixation. The patient wishes to proceed with the operation after explanation of the steps of the procedure as well as potential risks and complications. These have been explained as being inclusive of, but not limited to: Bleeding, infe ction, scarring, discomfort, blood vessel and/or nerve damage, malunion, nonunion, blood clot, pulmonary embolism, need for further surgery, gait disturbance, , and other risks. The consent form has been authorized. PROCEDURE: After appropriate consent was obtained, the patient was taken to the operating room and placed in supine position. Spinal anesthetic was administered and after confirmation of adequate anesthesia, the patient was carefully placed in the supine position on the operating room table in the fracture table. The patient was placed up against a well-padded peroneal post. Care was taken to make sure about that all pressure points were adequately padded. The affected leg was placed in boot traction and the unaffected leg was placed in a well leg corral. Using gentle longitudinal distraction as well as adduction and internal rotation, the fracture was reduced as assessed by AP and lateral C-arm imaging. This included a combination of longitudinal distraction with the fracture table frame, rotation both internally and externally until a satisfactory rotational alignment was achieved, and manual manipulation at the fracture site through the skin. Once a satisfactory reduction had been obtained, the thigh was prepped and draped in the usual aseptic fashion using ChloraPrep. Ioban drape was used for the case and the patient received intravenous antibiotics prior to incision. The incision was then created with a #10 blade just proximal to the greater trochanter laterally. It was carried down through skin into the subcutaneous tissues and through fascia. Hemostasis was obtained using electrocautery. The tip of the greater trochanter was palpated and a guide pin was placed at the tip and directed into the femoral shaft as assessed with C-arm imaging. Once optimal pin position had been obtained, a 17 mm reamer was used over the guide pin to create a path for the IT nail. A long IT nail was selected as the fracture extended below the lesser trochanter. Measurements were taken for size of nail. A long guide pin was then placed into the medullary canal of the femur and reaming was performed to size 12 mm. IT nail selected was assembled to the insertion jig on the back table and bushings were checked for accuracy. The nail was then inserted using gentle mallet taps until it was fully deployed. During insertion, the fracture was attempted to be held in anatomic alignment with the use of manual pressure externally. The amount of rotation of the implant was assessed based on the amount of anteversion of the femoral neck. This was rot ated to match the patient's femoral neck anteversion and the helical blade guide was placed through the insertion jig and through an incision on the lateral side of the thigh more distal than the first. Once this guide was placed against the lateral cortex of the femur, a guide pin was drilled into the central region of the femoral head and neck as based on AP and lateral C-arm imaging. Once optimal pin position had been obtained, the guidewire was measured and appropriately sized helical blade was selected. The path for the helical blade was prepared using a tapered reamer. The helical blade was then inserted using gentle mallet taps along the guidewire until it was fully deployed. There was no displacement of the fracture during this step. The anti-rotation screw was locked down and the insertion apparatus for the helical blade was removed. The guide pin was then removed. Traction was then removed from the leg and the distal interlocks were placed using standard freehand technique. Finally, the insertion jig for the nail was removed and final C-arm images were taken and saved in both AP and lateral planes. The final x-rays showed satisfactory positioning of the implant and satisfactory reduction of the fracture. The top of the nail was plugged with a small quantity of bone wax and the incisions were then thoroughly irrigated with normal saline. Final hemostasis was obtained using electrocautery and closure of the fascia was performed using 0-Vicryl suture. 2-0 Vicryl suture was used in the subcutaneous tissues and freedom were used for the skin. Sterile dressing was then applied and the patient was carefully removed from the fracture table frame and placed onto the stretcher. The patient tolerated the procedure well. There were no complications and approximately 100 mL of blood loss. The patient was then subsequently transferred to recovery room in stable condition. Sponge and needle counts were correct.
== END 2019-03-27 13:12 | disposition home health service (06) | DRG 482 ==
LOC: EC 12:07 → 4SSUR 14:14
PROVIDERS: ADMIT Orthopaedic Surgery; ATTEND Orthopaedic Surgery
PROC: 0QS736Z Reposition Left Upper Femur with Intramedullary Internal Fixation Device, Percutaneous Approach (ICD-10-PCS; principal; 2019-03-23 14:15)
DX: S72.22XA Displaced subtrochanteric fracture of left femur, initial encounter for closed fracture (principal); W17.89XA Other fall from one level to another, initial encounter; D72.829 Elevated white blood cell count, unspecified; Z87.891 Personal history of nicotine dependence; Z98.42 Cataract extraction status, left eye; Z98.41 Cataract extraction status, right eye; Z96.1 Presence of intraocular lens; F10.10 Alcohol abuse, uncomplicated; Z71.41 Alcohol abuse counseling and surveillance of alcoholic; Z81.1 Family history of alcohol abuse and dependence
CPT/HCPCS: 36415; 70450; 71045; 72125; 73502; 80048; 80053; 80306; 80320; 81003; 84484; 85025; 85610; 85730; 93005; 94760; 96361; 96374; 96375; 96376; 99285

== ENCOUNTER 2021-12-29 08:10 | Observation (INO) | payer MEDICARE ==
--- NOTE | 2021-12-29 08:25 | ED ---
General Adult HPI - General Chief complaint: Shortness of Breath Stated complaint: NICOLLE Time Seen by Provider: 12/29/21 08:12 Source: patient, RN notes reviewed, old records reviewed Mode of arrival: wheelchair Limitations: no limitations - History of Present Illness Initial comments: 81-year-old male presenting for evaluation of dyspnea. Symptoms have been present for the past several months but seems to have worsened over the past several weeks. He denies central chest pain. Denies palpitations Denies lower extremity pain or swelling. No history of CAD or CHF. No history of COPD. No history DVT or PE. Patient was a former smoker, quit about 6 years ago but smoked for 50 years. He reports a very mild cough. Patient denies weight loss. Denies fever. Patient does report that he has been sleeping in a chair. - Related Data Home Medications Medication Instructions Recorded Confirmed No Known Home Medications 12/29/21 12/29/21 Allergies Allergy/AdvReac Type Severity Reaction Status Date / Time No Known Allergies Allergy Verified 12/29/21 09:59 Review of Systems ROS Statement: Those systems with pertinent positive or pertinent negative responses have been documented in the HPI. ROS Other: All systems not noted in ROS Statement are negative. Past Medical History Past Medical History: No Reported History Additional Past Medical History / Comment(s): Diverticulitis. Pt states he goes to the doctor about every 10 yrs. History of Any Multi-Drug Resistant Organisms: None Reported Past Surgical History: Hernia Repair, Tonsillectomy Additional Past Surgical History / Comment(s): R inguinal hernia repair, colonoscopy, bilateral cataract removal/lens implants Past Anesthesia/Blood Transfusion Reactions: No Reported Reaction Past Psychological History: No Psychological Hx Reported Smoking Status: Former smoker Past Alcohol Use History: Occasional Past Drug Use History: None Reported - Past Family History Father Additional Family Medical History / Comment(s): Father was a drinker. Mother Additional Family Medical History / Comment(s): Mother had 2 brain tumors. General Exam Limitations: no limitations General appearance: alert, in no apparent distress Head exam: Present: atraumatic, normocephalic Eye exam: Present: normal appearance, PERRL Respiratory exam: Present: decreased breath sounds (Diminished bilaterally with minimal air entry). Absent: respiratory distress, wheezes, rales Cardiovascular Exam: Present: tachycardia, irregular rhythm GI/Abdominal exam: Present: soft. Absent: distended, tenderness, guarding Extremities exam: Present: normal inspection, normal capillary refill, pedal edema (trace) Neurological exam: Present: alert, oriented X3, CN II-XII intact, normal gait. Absent: motor sensory deficit Psychiatric exam: Present: normal affect, normal mood Skin exam: Present: warm, dry, intact. Absent: cyanosis, diaphoretic Course Vital Signs 12/29/21 12/29/21 12/29/21 08:11 08:40 09:00 Temperature 97.8 F Pulse Rate 79 115 H Respiratory 18 17 29 H Rate Blood Pressure 155/103 O2 Sat by Pulse 91 L 98 Oximetry 12/29/21 10:00 Temperature Pulse Rate 90 Respiratory 30 H Rate Blood Pressure 130/107 O2 Sat by Pulse 97 Oximetry EKG Findings - EKG Comments: EKG Findings:: EKG: Atrial fibrillation with rapid ventricular response no ST segment elevation rate of 153, QRS duration 97, QTC 376 Medical Decision Making - Medical Decision Making 81-year-old male presenting with dyspnea. Patient found to be in nature fibrillation with RVR. The likely does have some underlying COPD and emphysema as well. Workup is initiated. He has a normal CBC with stable hemoglobin. Chest x-ray showing no large focal pneumonia or pneumothorax. He did have a positive d-dimer and CT angiography was ordered which could not entirely rule out small pulmonary embolism. No central pulmonary embolism. His BNP is elevated troponin is negative. He started on Cardizem and heparin in the emergency department. He will be admitted to [facility] was aware. - Lab Data Result diagrams: 12/29/21 08:29 12/29/21 09:15 Lab Results 12/29/21 12/29/21 12/29/21 Range/Units 08:29 08:29 08:29 WBC 7.1 (3.8-10.6) k/uL RBC 5.37 (4.30-5.90) m/uL Hgb 16.4 (13.0-17.5) gm/dL Hct 52.0 (39.0-53.0) % MCV 96.8 (80.0-100.0) fL MCH 30.5 (25.0-35.0) pg MCHC 31.5 (31.0-37.0) g/dL RDW 12.8 (11.5-15.5) % Plt Count 190 (150-450) k/uL MPV 11.3 Neutrophils % 74 % Lymphocytes % 16 % Monocytes % 6 % Eosinophils % 2 % Basophils % 2 % Neutrophils # 5.3 (1.3-7.7) k/uL Lymphocytes # 1.1 (1.0-4.8) k/uL Monocytes # 0.4 (0-1.0) k/uL Eosinophils # 0.2 (0-0.7) k/uL Basophils # 0.1 (0-0.2) k/uL PT 11.2 (9.0-12.0) sec INR 1.0 (<1.2) APTT 22.8 (22.0-30.0) sec D-Dimer 2.65 H (<0.60) mg/L FEU Sodium (137-145) mmol/L Potassium (3.5-5.1) mmol/L Chloride (98-107) mmol/L Carbon Dioxide (22-30) mmol/L Anion Gap mmol/L BUN (9-20) mg/dL Creatinine (0.66-1.25) mg/dL Est GFR (CKD-EPI)AfAm (>60 ml/min/1.73 sqM) Est GFR (CKD-EPI)NonAf (>60 ml/min/1.73 sqM) Glucose (74-99) mg/dL Plasma Lactic Acid Paddy 1.7 (0.7-2.0) mmol/L Calcium (8.4-10.2) mg/dL Magnesium (1.6-2.3) mg/dL Total Bilirubin (0.2-1.3) mg/dL AST (17-59) U/L ALT (4-49) U/L Alkaline Phosphatase (38-126) U/L Troponin I (0.000-0.034) ng/mL NT-Pro-B Natriuret Pep pg/mL Total Protein (6.3-8.2) g/dL Albumin (3.5-5.0) g/dL 12/29/21 12/29/21 12/29/21 Range/Units 08:29 09:15 09:15 WBC (3.8-10.6) k/uL RBC (4.30-5.90) m/uL Hgb (13.0-17.5) gm/dL Hct (39.0-53.0) % MCV (80.0-100.0) fL MCH (25.0-35.0) pg MCHC (31.0-37.0) g/dL RDW (11.5-15.5) % Plt Count (150-450) k/uL MPV Neutrophils % % Lymphocytes % % Monocytes % % Eosinophils % % Basophils % % Neutrophils # (1.3-7.7) k/uL Lymphocytes # (1.0-4.8) k/uL Monocytes # (0-1.0) k/uL Eosinophils # (0-0.7) k/uL Basophils # (0-0.2) k/uL PT (9.0-12.0) sec INR (<1.2) APTT (22.0-30.0) sec D-Dimer (<0.60) mg/L FEU Sodium 138 (137-145) mmol/L Potassium 5.6 H (3.5-5.1) mmol/L Chloride 108 H (98-107) mmol/L Carbon Dioxide 19 L (22-30) mmol/L Anion Gap 11 mmol/L BUN 32 H (9-20) mg/dL Creatinine 0.87 (0.66-1.25) mg/dL Est GFR (CKD-EPI)AfAm >90 (>60 ml/min/1.73 sqM) Est GFR (CKD-EPI)NonAf 82 (>60 ml/min/1.73 sqM) Glucose 101 H (74-99) mg/dL Plasma Lactic Acid Paddy (0.7-2.0) mmol/L Calcium 8.7 (8.4-10.2) mg/dL Magnesium 1.9 (1.6-2.3) mg/dL Total Bilirubin 3.0 H (0.2-1.3) mg/dL AST 44 (17-59) U/L ALT 32 (4-49) U/L Alkaline Phosphatase 107 (38-126) U/L Troponin I 0.018 (0.000-0.034) ng/mL NT-Pro-B Natriuret Pep 5820 pg/mL Total Protein 7.1 (6.3-8.2) g/dL Albumin 4.1 (3.5-5.0) g/dL Critical Care Time Critical Care Time: Yes Total Critical Care Time: 35 Disposition Clinical Impression: COPD (chronic obstructive pulmonary disease), Atrial fibrillation with RVR Disposition: ADMITTED IP TO THIS HOSP Condition: Stable Is patient prescribed a controlled substance at d/c from ED?: No Referrals: None,Stated [Primary Care Provider] - 1-2 days Time of Disposition: 11:33
[2021-12-29] MEDS ORDERED: DILTIAZEM DRIP BOLUS FROM BAG 1 MG SOLN IV ONE (08:30)
[2021-12-29] MEDS ORDERED: DILTIAZEM 125 MG in SODIUM CHLORIDE 0.9% 100 ML IV SCH (08:45)
--- NOTE | 2021-12-29 08:57 | XR ---
EXAMINATION TYPE: XR chest 2V DATE OF EXAM: 12/29/2021 COMPARISON: X-ray dated 03/21/2019 HISTORY: Difficulty breathing TECHNIQUE: Frontal and lateral views of the chest are obtained. FINDINGS: COPD changes. Bilateral apical pulmonary fibrotic changes. No lawrence area of pulmonary consolidation. Questionable minimal pleural effusions. No definite pneumothorax. Slightly increased cardiac transver se diameter. Aortic atherosclerotic calcifications. Degenerative changes of the thoracic spine. IMPRESSION: COPD changes and other incidental findings as described above.
[2021-12-29 09:05] LABS: Basophils # (A) 0.1 k/uL (0-0.2); Basophils % (A) 2 %; Eosinophils # (A) 0.2 k/uL (0-0.7); Eosinophils % (A) 2 %; HGB 16.4 gm/dL (13.0-17.5); Lymphocytes # (A) 1.1 k/uL (1.0-4.8); Lymphocytes % (A) 16 %; MCH 30.5 pg (25.0-35.0); MCHC 31.5 g/dL (31.0-37.0); MCV 96.8 fL (80.0-100.0); Mean Platelet Volume 11.3; Monocytes # (A) 0.4 k/uL (0-1.0); Monocytes % (A) 6 %; Neutrophils # (A) 5.3 k/uL (1.3-7.7); Neutrophils % (A) 74 %; Platelet Count 190 k/uL (150-450); RBC 5.37 m/uL (4.30-5.90); RDW 12.8 % (11.5-15.5); WBC 7.1 k/uL (3.8-10.6)
[2021-12-29 09:07] LABS: Partial Thromboplastin Time 22.8 sec (22.0-30.0); Prothrombin Time 11.2 sec (9.0-12.0)
[2021-12-29 09:52] LABS: ALT 32 U/L (4-49); African American GFR (CKD) >90 (>60 ml/min/1.73 sqM); Albumin 4.1 g/dL (3.5-5.0); Anion Gap 11 mmol/L; Blood Urea Nitrogen 32 mg/dL (9-20); Calcium 8.7 mg/dL (8.4-10.2); Carbon Dioxide 19 mmol/L (22-30); Chloride 108 mmol/L (98-107); Glucose 101 mg/dL (74-99); Non-African American GFR(CKD) 82 (>60 ml/min/1.73 sqM); Sodium 138 mmol/L (137-145); Total Protein 7.1 g/dL (6.3-8.2)
[2021-12-29] MEDS ORDERED: HEPARIN SODIUM 1,000 UN/ML (10ML VL) IV PRN (10:02)
[2021-12-29] MEDS ORDERED: HEPARIN SODIUM 1,000 UN/ML (10ML VL) IV ONE (10:02)
[2021-12-29] MEDS ORDERED: ASPIRIN 325 MG TAB PO STA (10:03)
[2021-12-29 10:06] LABS: AST 44 U/L (17-59); Alkaline Phosphatase 107 U/L (38-126); Magnesium 1.9 mg/dL (1.6-2.3); Potassium 5.6 mmol/L (3.5-5.1)
[2021-12-29] MEDS ORDERED: HEPARIN SOD,PORK IN 0.45% NACL 25,000 UNIT in 0.45% NACL 1 250ML.BAG IV SCH (10:15)
--- NOTE | 2021-12-29 11:21 | CT ---
EXAMINATION TYPE: CT angio chest DATE OF EXAM: 12/29/2021 COMPARISON: CT dated 12/16/2010 HISTORY: SOB CT DLP: 295.3 mGy.cm. Automated Exposure Control for Dose Reduction was Utilized. TECHNIQUE AND CONTRAST: CTA scan of the thorax is performed with IV Contrast, patient injected with 75cc mL of Isovue 370, pu lmonary angiogram protocol. MIP Images are created on an independent workstation and reviewed. FINDINGS: Decreased enhancement of the posterior segmental and subsegmental pulmonary arteries of the left lowe r lobe which could be due to technical factors however underlying pulmonary embolus cannot be exclude d. No other definite filling defects seen within the pulmonary trunk, main pulmonary arteries, lobar, segmental and proximal subsegmental arteries. Distal subsegmental arteries are suboptimally assessed. The pulmonary trunk measures 3.1 cm which may suggest pulmonary hypertension. Cardiomegaly with left atrial and left ventricular enlargement, plea se correlate with echocardiographic results. Coronary and arterial atherosclerotic calcifications. As cending aortic aneurysm measuring up to 4.5 cm. [id number] bilateral pleural effusions. Centrilobular emphysematous changes mainly involving t he upper lobes. Bilateral lower lobe subsegmental atelectasis, groundglass opacities and minimal pulm onary infiltration. Diffuse bronchial wall thickening, probably related to chronic bronchitis. Bilate ral apical pulmonary fibered changes. No sizable pericardial fluid. Enlarged hilar and mediastinal lymph nodes measuring up to 13 mm in sub carinal group, 14 mm in the right hilum and 10 mm in the precarinal location. No gross upper abdomina l abnormality. Osteopenia. Degenerative changes of the thoracic spine. IMPRESSION: Reduced enhancement of the left lower lobe posterior segmental and subsegmental pulmonary arteries wh ich could be due to technical factors however underlying pulmonary embolism can't be excluded. Otherw ise no major or central pulmonary embolism. COPD changes and bilateral pleural effusions as described above. Enlarged hilar and mediastinal lymph nodes as described above, slightly more prominent as compared to 2011 CT scan. A follow-up CT scan i n 3 months is advised. Other findings as described above.
[2021-12-29] MEDS ORDERED: ACETAMINOPHEN TAB 325 MG TAB PO PRN (11:30)
[2021-12-29] MEDS ORDERED: NALOXONE 0.4 MG/ML 1 ML VIAL IV PRN (11:30)
[2021-12-29] MEDS ORDERED: ALBUTEROL NEBULIZED 2.5 MG/3 ML INHALATION PRN (13:52)
[2021-12-29] MEDS ORDERED: NALOXONE 0.4 MG/ML 1 ML VIAL IVP PRN (13:52)
--- NOTE | 2021-12-29 14:05 | P.HPIM ---
History of Present Illness H&P Date: 12/29/21 Chief Complaint: Dyspnea on exertion 81-year-old man does not follow regularly with a physician with history of osteoarthritis, 100+ pack year smoking history, currently ex-smoker, presented with dyspnea on exertion. Patient says for the last several months he's noticed increasing dyspnea, however, over the last week it's been particularly bad where he has significant shortness of breath with any type of activity. He also reports cough with sputum production, but did not look at the sputum and cannot tell me what color it was or it's consistency. He denies any associated chest pain, palpitations. He also reports associated chills. He denies fevers, nausea, vomiting, syncope, presyncope, abdominal pain, constipation, diarrhea, dysuria, dyschezia, numbness/weakness of extremities. In the emergency room, patient was afebrile, 130/107, heart rate between 90-110, 97% on room air. CBC is unremarkable. Chemistries are remarkable for Carbon dioxide of 19, hyperkalemia to 5.6, hyperchloremia to 108. LFTs are remarkable for total bilirubin of 3.0, otherwise unremarkable. Troponin is 0.018. BNP was 5820. Lactic acid is 1.7. Coags are unremarkable. D-dimer was elevated at 2.65. Chest x-ray shows bilateral apical pulmonary fibrotic changes, hyperinflation consistent with COPD changes. CT angiography shows possible left lower lobe posterior segmental and subsegmental pulmonary embolism, COPD changes, bilateral pleural effusions, enlarged hilar mediastinal lymph nodes. EKG shows atrial fibrillation with rapid ventricular response, no ischemic campos ges. All Systems reviewed and pertinent positives and negatives noted in HPI, all other symptoms are negative Gen: in no apparent distress, resting comfortably in bed Eyes: PERRL, no scleral injection or icterus HENT: normocephalic, atraumatic, good hearing acuity, moist mucous membranes Neck: no tracheal deviation, full range of motion Resp: Diminished air exchange on auscultation, breathing comfortably with no accessory muscle use, no tactile fremitus, no wheezes, basilar crackles CVS: good distal perfusion x 4, no pitting edema, tachycardic, regular, no murmurs GI: soft, NTTP, ND, no hepatosplenomegaly : no suprapubic tenderness, no CVAT, barrera catheter not present MSK: no clubbing, no cyanosis, no noted contractures of extremities Skin: no noted rashes, petechiae; temperature of skin is appropriate Neuro: moving all extremities without signs of weakness, CN II-XII intact Psych: cooperative, euthymic mood, insight and judgment intact 'Labs and imaging reviewed Assessment/plan: Paroxysmal atrial fibrillation with rapid ventricular response Congestive heart failure exacerbation, unknown ejection fraction Pulmonary embolism COPD without exacerbation -Admit to inpatient, telemetry -Cardiology consult, pulmonology consult -Discontinue diltiazem drip, start metoprolol 12.5 mg twice a day -Lasix 20 mg IV daily -Echocardiogram -Heparin drip -Albuterol when necessary -Start Symbicort -A1c, TSH, lipid panel Hypertension -Started amlodipine Patient is full code DVT prophylaxis covered with therapeutic heparin Past Medical History Past Medical History: No Reported History Additional Past Medical History / Comment(s): Diverticulitis. Pt states he goes to the doctor about every 10 yrs. History of Any Multi-Drug Resistant Organisms: None Reported Past Surgical History: Hernia Repair, Tonsillectomy Additional Past Surgical History / Comment(s): R inguinal hernia repair, colonoscopy, bilateral cataract removal/lens implants Past Anesthesia/Blood Transfusion Reactions: No Reported Reaction Past Psychological History: No Psychological Hx Reported Smoking Status: Former smoker Past Alcohol Use History: Occasional Past Drug Use History: None Reported - Past Family History Father Additional Family Medical History / Comment(s): Father was a drinker. Mother Additional Family Medical History / Comment(s): Mother had 2 brain tumors. Medications and Allergies Home Medications Medication Instructions Recorded Confirmed Type No Known Home Medications 12/29/21 12/29/21 History Allergies Allergy/AdvReac Type Severity Reaction Status Date / Time No Known Allergies Allergy Verified 12/29/21 09:59 Physical Exam Osteopathic Statement: *. No significant issues noted on an osteopathic structural exam other than those noted in the History and Physical/Consult. Vitals: Vital Signs Temp Pulse Resp BP Pulse Ox 12/29/21 11:51 93 18 160/96 99 12/29/21 11:15 94 18 155/123 97 12/29/21 10:00 90 30 H 130/107 97 12/29/21 09:00 115 H 29 H 98 06/07/22 08:40 17 12/29/21 08:11 97.8 F 79 18 155/103 91 L Intake and Output 12/28/21 12/29/21 12/29/21 22:59 06:59 14:59 Other: Weight 77.111 kg Results CBC & Chem 7: 12/29/21 08:29 12/29/21 09:15 Labs: Abnormal Lab Results - Last 24 Hours (Table) 12/29/21 12/29/21 Range/Units 08:29 09:15 D-Dimer 2.65 H (<0.60) mg/L FEU Potassium 5.6 H (3.5-5.1) mmol/L Chloride 108 H (98-107) mmol/L Carbon Dioxide 19 L (22-30) mmol/L BUN 32 H (9-20) mg/dL Glucose 101 H (74-99) mg/dL Total Bilirubin 3.0 H (0.2-1.3) mg/dL
[2021-12-29] MEDS: amLODIPine 10 MG TAB PO SCH (14:29)
[2021-12-29] MEDS: METOPROLOL TARTRATE 12.5 MG TAB PO SCH ×2 (14:29→20:30)
[2021-12-29] MEDS: FUROSEMIDE 10 MG/ML 2 ML VIAL IV SCH (14:29)
[2021-12-29 15:23] LABS: African American GFR (CKD) >90 (>60 ml/min/1.73 sqM); Anion Gap 9 mmol/L; Blood Urea Nitrogen 28 mg/dL (9-20); Calcium 8.8 mg/dL (8.4-10.2); Carbon Dioxide 27 mmol/L (22-30); Chloride 102 mmol/L (98-107); Glucose 91 mg/dL (74-99); Non-African American GFR(CKD) 82 (>60 ml/min/1.73 sqM); Potassium 4.7 mmol/L (3.5-5.1); Sodium 138 mmol/L (137-145)
--- NOTE | 2021-12-29 15:25 | P.CNPUL ---
History of Present Illness Consult date: 12/29/21 Reason for consult: dyspnea Chief complaint: Dyspnea, A. fib with RVR History of present illness: This is a 81-year-old white male patient, former smoker, does not have a primary care provider, and has not had a regular physical or seen a primary care physician in 10-15 years other than at an urgent care clinic in June 2021 when he had an episode of tracheobronchitis and was treated with steroids and antibiotics. He states chest x-ray at that time at the urgent care clinic and for urine did not show evidence of pneumonia, and he tested negative for COVID 19. Denies any history of heart disease, no hypertension, no history of diabetes. Does not see a lung specialist. Patient is not on oxygen at home, and does not have any inhalers or breathing treatments. No other prescription medications. On 12/29/2021 patient presented to the emergency department with complaints of worsening dyspnea that has been progressing over a period of 2 weeks. Patient states he was hardly able to walk because of worsening dyspnea. Denied any fever or chills, does admit to coughing up some yellow colored phlegm. No complaints of hemoptysis, no chest pain. No nausea or vomiting, no diarrhea, no abdominal pain, no anal or swelling in his calves. Denied any weight loss, does report having to sleep in the chair. Chest x-ray in the emergency room showed COPD changes and slightly increased cardiac transverse diameter, with a suggestion of cardiomegaly. EKG showed atrial fibrillation with rapid ventricular response with a rate of 153 BPM. Patient was started on Cardizem infusion for rate control. His CBC was within normal limits with white count of 7.1, hemoglobin of 16.4, d-dimer was 2.65, the rest of the coordination profile was unremarkable, sodium is 138, potassium is 5.6, chloride is 108, CO2 is 19, B1 is 32, creatinine 0.87, plasma lactic acid is 1.7, total bilirubin is 3.0, LFTs are within normal limits, proBNP was elevated at 5820, troponin level was negative at 0.08. In view of elevated d-dimer level CTA chest has been completed showing reduced enhancement of the left lower lobe posterior segmental and subsegmental pulmonary arteries likely related to technical factors however underlying PE could not be completely excluded, however there was no evidence of major with central pulmonary embolism. There were COPD changes and bilateral pleural effusions, enlarged hilar and mediastinal lymph nodes measuring up to 13 mm and subcarinal group, and 14 mm in the right hilum and 10 mm in the precarinal location. Echocardiogram has been completed and the results are pending, patient was started on IV Lasix 40 mg. he is resting on the gurney in the emergency department, room air pulse ox is 98%, remains in A. fib with a better controlled rate currently at 81 BPM. Remains on Cardizem infusion, he states he is feeling better, breathing a bit more comfortably, lung sounds reveal evidence of coarse crackles throughout especially at bilateral bases. No wheezing noted Review of Systems All systems: negative Constitutional: Denies chills, Denies fever Eyes: denies blurred vision, denies pain Ears, nose, mouth and throat: Denies headache, Denies sore throat Cardiovascular: Reports chest pain, Reports dyspnea on exertion, Reports orthopnea, Reports shortness of breath Respiratory: Reports dyspnea, Denies cough Gastrointestinal: Denies abdominal pain, Denies diarrhea, Denies nausea, Denies vomiting Musculoskeletal: Denies myalgias Integumentary: Denies pruritus, Denies rash Neurological: Denies numbness, Denies weakness Psychiatric: Denies anxiety, Denies depression Endocrine: Denies fatigue, Denies weight change Past Medical History Past Medical History: Atrial Fibrillation Additional Past Medical History / Comment(s): Diverticulitis. History of Any Multi-Drug Resistant Organisms: None Reported Past Surgical History: Hernia Repair, Tonsillectomy Additional Past Surgical History / Comment(s): R inguinal hernia repair, colonoscopy, bilateral cataract removal/lens implants Past Anesthesia/Blood Transfusion Reactions: No Reported Reaction Past Psychological History: No Psychological Hx Reported Additional Psychological History / Comment(s): Pt resides alone. He has 2 cats. He is independent. He drives. Smoking Status: Former smoker Past Alcohol Use History: Occasional Additional Past Alcohol Use History / Comment(s): Pt started smoking in 1958 and quit in 2013. He drinks between 2 and 12 beers a day, depending on the day. Past Drug Use History: None Reported - Past Family History Father Additional Family Medical History / Comment(s): Father was a drinker. Mother Additional Family Medical History / Comment(s): . Medications and Allergies Home Medications Medication Instructions Recorded Confirmed Type Apixaban [Eliquis] 5 mg PO BID 30 Days #60 tab 12/30/21 Rx Allergies Allergy/AdvReac Type Severity Reaction Status Date / Time No Known Allergies Allergy Verified 12/29/21 09:59 Physical Exam Vitals: Vital Signs Temp Pulse Pulse Resp BP BP Pulse Ox 12/29/21 14:44 97.6 F 81 18 138/99 98 12/29/21 14:36 97.8 F 75 18 148/113 97 12/29/21 11:51 93 18 160/96 99 12/29/21 11:15 94 18 155/123 97 12/29/21 10:00 90 30 H 130/107 97 12/29/21 09:00 115 H 29 H 98 12/29/21 08:40 17 12/29/21 08:11 97.8 F 79 18 155/103 91 L Intake and Output 12/29/21 12/29/21 12/29/21 06:59 14:59 22:59 Other: Weight 77.111 kg GENERAL EXAM: Alert, pleasant, 81-year-old white male, resting on the gurney, breathing fairly comfortably, on room air with a pulse ox of 98% comfortable in no apparent distress. HEAD: Normocephalic/atraumatic. EYES: Normal reaction of pupils, equal size. Conjunctiva pink, sclera white. NOSE: Clear with pink turbinates. THROAT: No erythema or exudates. NECK: No masses, no JVD, no thyroid enlargement, no adenopathy. CHEST: No chest wall deformity. Symmetrical expansion. LUNGS: Equal air entry with coarse bilateral crackles CVS: Irregular rate and rhythm, normal S1 and S2, no gallops, no murmurs, no rubs ABDOMEN: Soft, nontender. No hepatosplenomegaly, normal bowel sounds, no guarding or rigidity. EXTREMITIES: No clubbing, no edema, no cyanosis, 2+ pulses and upper and lower extremities. MUSCULOSKELETAL: Muscle strength and tone normal. SPINE: No scoliosis or deformity SKIN: No rashes CENTRAL NERVOUS SYSTEM: Alert and oriented -3. No focal deficits, tone is normal in all 4 extremities. PSYCHIATRIC: Alert and oriented -3. Appropriate affect. Intact judgment and insight. Results - Laboratory Findings CBC and BMP: 12/30/21 07:39 12/30/21 07:39 PT/INR, D-dimer PT 11.2 sec (9.0-12.0) 12/29/21 08:29 INR 1.0 (<1.2) 12/29/21 08:29 D-Dimer 2.65 mg/L FEU (<0.60) H 12/29/21 08:29 Abnormal lab findings: Abnormal Labs 12/29/21 12/29/21 08:29 09:15 D-Dimer 2.65 H Potassium 5.6 H Chloride 108 H Carbon Dioxide 19 L BUN 32 H Glucose 101 H Total Bilirubin 3.0 H - Diagnostic Findings Chest x-ray: report reviewed, image reviewed CT scan - chest: report reviewed, image reviewed Assessment and Plan Plan: Assessment: #1. Acute hypoxic respiratory failure likely related to new onset of CHF, with unknown systolic function. #2. History of COPD/emphysema, with unknown baseline lung function, not normally oxygen dependent #3. New onset A. fib with RVR, currently better controlled on Cardizem infusion #4. Former smoker, in remission for last 6 years, carries 57 years of smoking of up to 3-4 packs a day #5. History of diverticulitis #6. History of bilateral cataract removal lens implant Plan: Agree with IV Lasix Suspect patient's difficulty breathing is primarily due to new onset atrial fibrillation with a component of fluid overload/acute CHF Continue Symbicort, nebulized albuterol as needed Echocardiogram has been completed, results are pending Cardiology recommendations Patient states he is going to go home tomorrow matter what We'll continue current medical treatment Follow-up labs tomorrow including CBC and BMP Patient will need outpatient PFT after discharge in follow-up in the pulmonary clinic if he chooses to We'll continue to follow I have personally seen and examined the patient, performed the documentation and the assessment and plan as written. Number of minutes spent on the visit: [15] I have personally seen and examined the patient and reviewed the documentation. I performed a joint evaluation with the nurse practitioner in this evaluation was done more than 30 minutes. I fully agree with the documentation above and the plan of care. This patient has COPD. At the same time, the patient is admitted with A. fib RVR and acute congestion heart failure exacerbation. Awaiting an echocardiogram. Continue diuresis. Rate control with Cardizem drip. Start bronchodilators. Start steroids. We'll follow. Time with Patient: Greater than 30
[2021-12-29] MEDS: SYMBICORT 160-4.5 MCG INHALER INHALATION SCH (20:14)
[2021-12-30 08:05] LABS: Basophils # (A) 0.1 k/uL (0-0.2); Basophils % (A) 1 %; Eosinophils # (A) 0.2 k/uL (0-0.7); Eosinophils % (A) 3 %; HCT 51.8 % (39.0-53.0); HGB 16.2 gm/dL (13.0-17.5); Lymphocytes # (A) 1.2 k/uL (1.0-4.8); Lymphocytes % (A) 15 %; MCH 30.6 pg (25.0-35.0); MCHC 31.2 g/dL (31.0-37.0); MCV 97.9 fL (80.0-100.0); Mean Platelet Volume 10.5; Monocytes # (A) 0.5 k/uL (0-1.0); Monocytes % (A) 6 %; Neutrophils # (A) 5.5 k/uL (1.3-7.7); Neutrophils % (A) 73 %; Platelet Count 176 k/uL (150-450); RBC 5.29 m/uL (4.30-5.90); RDW 12.6 % (11.5-15.5); WBC 7.5 k/uL (3.8-10.6)
[2021-12-30] MEDS: SYMBICORT 160-4.5 MCG INHALER INHALATION SCH ×2 (08:16→19:25)
[2021-12-30 08:20] LABS: INR 1.1 (<1.2); Partial Thromboplastin Time 50.2 sec (22.0-30.0); Prothrombin Time 11.7 sec (9.0-12.0)
[2021-12-30 08:31] LABS: African American GFR (CKD) 88 (>60 ml/min/1.73 sqM); Anion Gap 7 mmol/L; Blood Urea Nitrogen 30 mg/dL (9-20); Calcium 8.6 mg/dL (8.4-10.2); Carbon Dioxide 25 mmol/L (22-30); Chloride 104 mmol/L (98-107); Glucose 94 mg/dL (74-99); Non-African American GFR(CKD) 76 (>60 ml/min/1.73 sqM); Potassium 4.6 mmol/L (3.5-5.1); Sodium 136 mmol/L (137-145)
[2021-12-30] MEDS: amLODIPine 10 MG TAB PO SCH (08:50)
[2021-12-30] MEDS: FUROSEMIDE 10 MG/ML 2 ML VIAL IV SCH (08:50)
[2021-12-30] MEDS: METOPROLOL TARTRATE 12.5 MG TAB PO SCH (08:50)
[2021-12-30] MEDS: APIXABAN 5 MG TAB PO SCH ×2 (09:03→19:59)
--- NOTE | 2021-12-30 09:11 | CA ---
Transthoracic Echo Report Name: Tacos Christine Age: 81 Gender: M : 1940 Exam Date: 12/29/2021 13:05 Exam Location: [facility] Ht (in): 71 Wt (lb): 170 Ordering Physician: Mark Deshpande MD Attending/Referring Phys: [id number], [employer] Consultant Charlene Cardoso RDCS Procedure CPT: Indications: NICOLLE Cardiac Hx: No cardiac hx. Technical Quality: Good Contrast 1: Total Dose (mL): Contrast 2: Total Dose (mL): MEASUREMENTS (Male / Female) Normal Values 2D ECHO LV Diastolic Diameter PLAX 4.5 cm 4.2 - 5.9 / 3.9 - 5.3 cm LV Systolic Diameter PLAX 4.4 cm IVS Diastolic Thickness 1.0 cm 0.6 - 1.0 / 0.6 - 0.9 cm LVPW Diastolic Thickness 1.3 cm 0.6 - 1.0 / 0.6 - 0.9 cm LV Relative Wall Thickness 0.5 LV Diastolic Volume MOD 4C 188.8 cm??? LV Systolic Volume MOD 4C 149.1 cm??? LV Ejection Fraction MOD 4C 21.0 % LV Diastolic Length 4C 8.2 cm LV Systolic Length 4C 8.0 cm LA Volume 112.7 cm??? 18 - 58 / 22 - 52 cm??? M-MODE Aortic Root Diameter MM 3.7 cm LA Systolic Diameter MM 3.4 cm LA Ao Ratio MM 0.9 MV E Point Septal Separation 3.0 cm AV Cusp Separation MM 1.1 cm DOPPLER AV Peak Velocity 235.5 cm/s AV Peak Gradient 22.2 mmHg AV Mean Velocity 182.6 cm/s AV Mean Gradient 14.7 mmHg AV Velocity Time Integral 44.3 cm AI Peak Velocity 275.9 cm/s AI Peak Gradient 30.5 mmHg AI Pressure Half Time 550.5 ms LVOT Peak Velocity 53.3 cm/s LVOT Peak Gradient 1.1 mmHg MV Area PHT 4.2 cm??? MR Peak Velocity 417.9 cm/s MR Peak Gradient 69.9 mmHg Mitral E Point Velocity 92.3 cm/s Mitral A Point Velocity 28.7 cm/s Mitral E to A Ratio 3.2 MV Deceleration Time 182.3 ms MV E' Velocity 5.2 cm/s Mitral E to MV E' Ratio 17.8 TR Peak Velocity 231.5 cm/s TR Peak Gradient 21.4 mmHg Right Ventricular Systolic Press 24.3 mmHg FINDINGS Left Ventricle Global hypokinesis.Grade 3 diastolic dysfunction. Left ventricular ejection fraction is estimated at 30-35 %. Left ventricular cavity size normal. Right Ventricle Normal right ventricular size. Right ventricular systolic pressure within normal limits. Right Atrium Normal right atrial size. Left Atrium Severely increased left atrial volume. Moderately increased left atrial area. Mitral Valve Mitral valve thickened. Mitral annular calcification. Mild mitral regurgitation. Aortic Valve Moderate to Severe low-flow low-gradient aortic stenosis with a peak velocity of 235.5 cm/s, peak gradient 22 mmHg, mean gradient 10 mmHg. Mild aortic regurgitation. Cannot exclude bicuspid aortic valve. Tricuspid Valve Structurally normal tricuspid valve without significant stenosis. Pulmonary artery systolic pressure is normal. Mild tricuspid regurgitation. Pulmonic Valve Structurally normal pulmonic valve without significant stenosis. There is no pulmonic regurgitation. Pericardium Normal pericardium without effusion. Aorta Normal aortic root dimension. CONCLUSIONS #1. Normal left ventricle size with severe global hypokinesia and ejection fraction 30-35%. #2. Severe left atrial enlargement. #3. Mild to moderate gradient across the aortic valve. Given the concurrent dysfunction, this may indicate moderate to severe aortic stenosis. 04. Mild tricuspid regurgitation Previewed by: Dr. Deepthi Amaral MD (Electronically Signed) Final Date: 30 December 2021 09:11
[2021-12-30] MEDS ORDERED: SPIRONOLACTONE 25 MG TAB PO SCH ×2 (10:30→21:00)
--- NOTE | 2021-12-30 11:11 | P.CRDCN ---
History of Present Illness History of present illness: HISTORY OF PRESENTING ILLNESS This is a pleasant 81-year-old male past medical history significant for former nicotine dependence quit 6 years ago. He does not follow with a credit risk modeler. We have been asked to see in consultation for atrial fibrillation with RVR. Patient presents to the emergency department with symptoms of exertional dyspnea for 2 weeks. Prior to this he denies any complaints. Starting 2 weeks ago he noticed that he was having worsening shortness of breath with activity. He states he normally walks a few blocks, doing his daily activities without any dyspnea. He denies any chest pain, lightheadedness, dizziness, palpitations, nausea, vomiting, syncope or near syncope, fever, cough, chills, abdominal pain. He denies any symptoms of orthopnea or PND. Patient denies history of atrial fibrillation, CAD, CA, hypertension, dyslipidemia, diabetes, stroke. Patient was a former smoker, quit about 6 years ago but smoked for 50 years. He does drink 23 beers per day. He recalls his father having some type of cardiac history but cannot recall. Patient found to be in atrial fibrillation with RVR HR 150s, Started on IV Cardizem bolus and drip and IV Heparin. He was also found to be hypokalemic with a potassium 5.6. DIAGNOSTICS Echocardiogram revealed an EF of 3035%, grade 3 diastolic dysfunction, moderate to severe low flow low gradient aortic stenosis with peak/mean gradient of 22 mmHg/10 mmHg, mild mitral regurgitation, mild aortic regurgitation, cannot exclude bicuspid aortic valve, mild tricuspid regurgitation EKG reveals atrial fibrillation with rapid ventricular response, heart rate 153, non-specific ST-T wave abnormality Telemetry tracings indicate atrial fibrillation with controlled ventricular rates in the 60s80s Chest CT report revealed underlying pulmonary embolism cannot be excluded. COPD and bilateral pleural effusions as above. Laboratory reviewed, CBC unremarkable, d-dimer 2.6, sodium 138, potassium 5.6, BUN 32, serum creatinine 0.8, magnesium 1.9, troponin negative, proBNP 5820 Current home medications include none REVIEW OF SYSTEMS At the time of my exam: CONSTITUTIONAL: Denies fever or chills. CARDIOVASCULAR: Denies chest pain, shortness of breath, orthopnea, PND or palpitations. RESPIRATORY: Denies cough. GASTROINTESTINAL: Denies abdominal pain, diarrhea, constipation, nausea or vomiting. MUSCULOSKELETAL: Denies myalgias. NEUROLOGIC: Denies numbness, tingling, headacbe or weakness. ENDOCRINE: Denies fatigue, weight change, polydipsia or polyurina. GENITOURINARY: Denies burning, hematuria or urgency with micturation. HEMATOLOGIC: Denies history of anemia or bleeding. PHYSICAL EXAMINATION Vitals 126/78, heart rate 76, afebrile, saturations 93% room air CONSTITUTIONAL: No apparent distress. HEENT: Head is normocephalic. Pupils are equal, round. Sclerae anicteric. Mucous membranes of the mouth are moist. No JVD. No carotid bruit. CHEST EXAMINATION: Lungs are diminished to auscultation. No chest wall tenderness is noted on palpation or with deep breathing. HEART EXAMINATION: Regular rate and rhythm. S1, S2 heard. Systolic murmur at right sternal border. ABDOMEN: Soft, nontender. Positive bowel sounds. EXTREMITIES: 2+ peripheral pulses, no lower extremity edema and no calf tenderness. SKIN: warm, dry NEUROLOGIC EXAMINATION: Patient is awake, alert and oriented x3. 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 Metoprolol succinate 25mg daily Spironolactone 12.5mg daily Discontinue Amlodipine, start losartan 25mg daily Monitor BMP tomorrow Lipid panel, Hemoglobin A1C pending Patient very adamant on being discharge, monitor for additional 24 hours, patient is agreeable at this time Continue cardiac telemetry Case management consulted for Eliquis coverage, per case management $37 copay Further recommendations based on clinical course Close follow up outpatient with Dr. Allred. Nurse practitioner note has been reviewed by physician. Signing provider agrees with the documented findings, assessment, and plan of care. Past Medical History Past Medical History: No Reported History Additional Past Medical History / Comment(s): Diverticulitis. Pt states he goes to the doctor about every 10 yrs. History of Any Multi-Drug Resistant Organisms: None Reported Past Surgical History: Hernia Repair, Tonsillectomy Additional Past Surgical History / Comment(s): R inguinal hernia repair, colonoscopy, bilateral cataract removal/lens implants Past Anesthesia/Blood Transfusion Reactions: No Reported Reaction Past Psychological History: No Psychological Hx Reported Smoking Status: Former smoker Past Alcohol Use History: Occasional Past Drug Use History: None Reported - Past Family History Father Additional Family Medical History / Comment(s): Father was a drinker. Mother Additional Family Medical History / Comment(s): Mother had 2 brain tumors. Medications and Allergies Home Medications Medication Instructions Recorded Confirmed Type Apixaban [Eliquis] 5 mg PO BID 30 Days #60 tab 12/30/21 Rx Allergies Allergy/AdvReac Type Severity Reaction Status Date / Time No Known Allergies Allergy Verified 12/29/21 09:59 Physical Exam Vitals: Vital Signs Temp Pulse Resp BP Pulse Ox 12/29/21 11:51 93 18 160/96 99 12/29/21 11:15 94 18 155/123 97 12/29/21 10:00 90 30 H 130/107 97 12/29/21 09:00 115 H 29 H 98 12/29/21 08:40 17 12/29/21 08:11 97.8 F 79 18 155/103 91 L Intake and Output 12/28/21 12/29/21 12/29/21 22:59 06:59 14:59 Other: Weight 77.111 kg Results 12/30/21 07:39 12/30/21 07:39 Cardiac Enzymes 12/29/21 12/29/21 Range/Units 09:15 09:15 AST 44 (17-59) U/L Troponin I 0.018 (0.000-0.034) ng/mL Coagulation 12/29/21 Range/Units 08:29 PT 11.2 (9.0-12.0) sec APTT 22.8 (22.0-30.0) sec CBC 12/29/21 Range/Units 08:29 WBC 7.1 (3.8-10.6) k/uL RBC 5.37 (4.30-5.90) m/uL Hgb 16.4 (13.0-17.5) gm/dL Hct 52.0 (39.0-53.0) % Plt Count 190 (150-450) k/uL Comprehensive Metabolic Panel 12/29/21 Range/Units 09:15 Sodium 138 (137-145) mmol/L Potassium 5.6 H (3.5-5.1) mmol/L Chloride 108 H (98-107) mmol/L Carbon Dioxide 19 L (22-30) mmol/L BUN 32 H (9-20) mg/dL Creatinine 0.87 (0.66-1.25) mg/dL Glucose 101 H (74-99) mg/dL Calcium 8.7 (8.4-10.2) mg/dL AST 44 (17-59) U/L ALT 32 (4-49) U/L Alkaline Phosphatase 107 (38-126) U/L Total Protein 7.1 (6.3-8.2) g/dL Albumin 4.1 (3.5-5.0) g/dL Current Medications Generic Name Dose Route Start Last Admin Trade Name Freq PRN Reason Stop Dose Admin Acetaminophen 650 mg 12/29/21 11:30 Acetaminophen Tab 325 Mg Tab PO Q6HR PRN Mild Pain or Fever > 100.5 Heparin Sodium (Porcine) 0 unit 12/29/21 10:02 Heparin Sodium 1,000 Un/Ml (10ml Vl) IV PER PROTOCOL PRN Low PTT Protocol Diltiazem HCl 125 mg/ Sodium 125 mls @ 5 mls/hr 12/29/21 08:45 12/29/21 08:55 Chloride IV 5 mg/hr .Q24H [facility] 5 mls/hr Administration 5 MG/HR Heparin Sodium/Sodium Chloride 250 mls @ 9.253 mls/hr 12/29/21 10:15 12/29/21 11:50 25,000 unit/ Sodium Chloride IV 12 units/kg/hr .Q24H [facility] 9.253 mls/hr Administration Protocol 12 UNITS/KG/HR Naloxone HCl 0.2 mg 12/29/21 11:30 Naloxone 0.4 Mg/Ml 1 Ml Vial IV Q2M PRN Opioid Reversal Intake and Output 12/28/21 12/29/21 12/29/21 22:59 06:59 14:59 Other: Weight 77.111 kg Patient Weight 12/30/21 06:59 Weight 77.111 kg 12/29/21 08:29 12/29/21 09:15
--- NOTE | 2021-12-30 11:21 | P.PN ---
Subjective Progress Note Date: 12/30/21 This is a 81-year-old white male patient, former smoker, does not have a primar y care provider, and has not had a regular physical or seen a primary care physician in 10-15 years other than at an urgent care clinic in June 2021 when he had an episode of tracheobronchitis and was treated with steroids and antibiotics. He states chest x-ray at that time at the urgent care clinic and for urine did not show evidence of pneumonia, and he tested negative for COVID 19. Denies any history of heart disease, no hypertension, no history of diabetes. Does not see a lung specialist. Patient is not on oxygen at home, and does not have any inhalers or breathing treatments. No other prescription medications. On 12/29/2021 patient presented to the emergency department with complaints of worsening dyspnea that has been progressing over a period of 2 weeks. Patient states he was hardly able to walk because of worsening dyspnea. Denied any fever or chills, does admit to coughing up some yellow colored phlegm. No complaints of hemoptysis, no chest pain. No nausea or vomiting, no diarrhea, no abdominal pain, no anal or swelling in his calves. Denied any weight loss, does report having to sleep in the chair. Chest x-ray in the emergency room showed COPD changes and slightly increased cardiac transverse diameter, with a suggestion of cardiomegaly. EKG showed atrial fibrillation with rapid ventricular response with a rate of 153 BPM. Patient was started on Cardizem infusion for rate control. His CBC was within normal limits with white count of 7.1, hemoglobin of 16.4, d-dimer was 2.65, the rest of the coordination profile was unremarkable, sodium is 138, potassium is 5.6, chloride is 108, CO2 is 19, B1 is 32, creatinine 0.87, plasma lactic acid is 1.7, total bilirubin is 3.0, LFTs are within normal limits, proBNP was elevated at 5820, troponin level was negative at 0.08. In view of elevated d-dimer level CTA chest has been completed showing reduced enhancement of the left lower lobe posterior segmental and subsegmental pulmonary arteries likely related to technical factors however underlying PE could not be completely excluded, however there was no evidence of major with central pulmonary embolism. There were COPD changes and bilateral pleural effusions, enlarged hilar and mediastinal lymph nodes measuring up to 13 mm and subcarinal group, and 14 mm in the right hilum and 10 mm in the precarinal location. Echocardiogram has been completed and the results are pending, patient was started on IV Lasix 40 mg. he is resting on the gurney in the emergency department, room air pulse ox is 98%, remains in A. fib with a better controlled rate currently at 81 BPM. Remains on Cardizem infusion, he states he is feeling better, breathing a bit more comfortably, lung sounds reveal evidence of coarse crackles throughout especially at bilateral bases. No wheezing noted 12/30/2021, the patient is feeling much better and the patient is currently on room air oxygen. He reports marked improvement in his shortness of breath since yesterday. Noted the patient was in A. fib RVR in addition to decompensated heart failure. Echocardiogram was completed yesterday and the patient was found to have global hypokinesis with an ejection fraction of around 30-35%. At the same time, there was moderate to severe degree of aortic stenosis with a peak gradient of 22 mmHg and mild aortic regurgitation. Cannot exclude the possibility of a bicuspid aortic valve. The mitral valve was essentially showing no major abnormalities. The patient's current cardiac rhythm is still in atrial fibrillation although the rate is controlled. He was taken off the IV heparin and he was started on Eliquis 5 mg by mouth twice a day. He is still receiving Lasix 20 mg IV every 24 hours and is also on Toprol 25 mg by mouth twice a day. He has been in a negative fluid balance. No angina. No palpitations. No chest pain at this point in time. Objective - Vital Signs Vital signs: Vital Signs Temp 97.9 F 12/30/21 08:00 Pulse 76 12/30/21 08:00 Resp 18 12/30/21 08:00 BP 126/78 12/30/21 08:00 Pulse Ox 93 L 12/30/21 08:00 FiO2 Intake & Output 12/29/21 12/30/21 12/30/21 18:59 06:59 18:59 Intake Total 64.682 283.669 118 Balance 64.682 283.669 118 Weight 77.111 kg Intake: IV 5 Invasive Line 1 5 Intake, IV Titration 59.682 83.669 Amount Heparin Sod,Pork in 0.45% 59.682 83.669 NaCl 25,000 unit In 0.45 % NaCl 1 250ml.bag @ 12 UNITS/KG/HR 9.253 mls/hr IV .Q24H [facility] Rx#: [id number] Oral 200 118 Other: Voiding Method Toilet Toilet # Voids 1 1 - Exam GENERAL EXAM: Alert, pleasant, 81-year-old white male, resting on the gurney, breathing fairly comfortably, on room air with a pulse ox of 98% comfortable in no apparent distress. HEAD: Normocephalic/atraumatic. EYES: Normal reaction of pupils, equal size. Conjunctiva pink, sclera white. NOSE: Clear with pink turbinates. THROAT: No erythema or exudates. NECK: No masses, no JVD, no thyroid enlargement, no adenopathy. CHEST: No chest wall deformity. Symmetrical expansion. LUNGS: Equal air entry with coarse bilateral crackles CVS: Irregular rate and rhythm, normal S1 and S2, no gallops, no murmurs, no rubs ABDOMEN: Soft, nontender. No hepatosplenomegaly, normal bowel sounds, no guarding or rigidity. EXTREMITIES: No clubbing, no edema, no cyanosis, 2+ pulses and upper and lower extremities. MUSCULOSKELETAL: Muscle strength and tone normal. SPINE: No scoliosis or deformity SKIN: No rashes CENTRAL NERVOUS SYSTEM: Alert and oriented -3. No focal deficits, tone is normal in all 4 extremities. PSYCHIATRIC: Alert and oriented -3. Appropriate affect. Intact judgment and insight. - Labs CBC & Chem 7: 12/30/21 07:39 12/30/21 07:39 Labs: Abnormal Lab Results - Last 24 Hours (Table) 12/29/21 12/29/21 12/30/21 Range/Units 14:49 17:36 00:29 APTT 34.9 H 35.2 H (22.0-30.0) sec Sodium (137-145) mmol/L BUN 28 H (9-20) mg/dL 12/30/21 12/30/21 Range/Units 07:39 07:39 APTT 50.2 H (22.0-30.0) sec Sodium 136 L (137-145) mmol/L BUN 30 H (9-20) mg/dL Assessment and Plan Plan: Acute hypoxic respiratory failure likely related to new onset of CHF, clinically improving and the patient is currently on room air oxygen. Further investigation yielded the patient has a CHF with systolic heart failure with an ejection fraction of 3035% along with moderate degree of aortic stenosis Moderately severe aortic stenosis Systolic heart failure with an ejection fraction of 3035% COPD New onset atrial fibrillation, with rapid ventricular response, currently off Cardizem drip at the rate is controlled on metoprolol and the Cardizem drip has been discontinued History of smoking Diverticulosis and previous history of diverticulitis History of cataracts Plan: Continue IV Lasix and Aldactone Anticoagulation with Eliquis and the patient is also on metoprolol for rate control. Continue Symbicort, nebulized albuterol as needed Echocardiogram noted Cardiology recommendations We'll continue current medical treatment Follow-up labs tomorrow including CBC and BMP Patient will need outpatient PFT after discharge in follow-up in the pulmonary clinic if he chooses to We'll continue to follow
--- NOTE | 2021-12-30 11:37 | P.PN ---
Progress Note - Text Patient presented with Daly. dana with RVR and increasing tiredness and fatigue for the last 2 weeks Regular alcohol consumption at least 3 beers a day Drinks a lot of Mountain Dew According to the ER note he's been having symptoms for the last several months but worse in the last several weeks He stop smoking 6 years back him a smoke for 50 years prior to Not on any home medications Rate controlled on beta blockers Severe global hypokinesis ejection fraction 30-35% with severe left atrial enlargement [id number] gradient across the aortic valve Hemoglobin 16.2 Potassium 5.6 initially but now normal BUN 30 creatinine 0.95 Bilirubin 3.0 AST 44 ALT 32 Normal troponin TSH normal 1.8 D-dimer 2.65 Computed tomography scan of the chest did not show any clear-cut evidence for pulmonary embolism Impression Severe cardio myopathy, global Reduced aortic valve excursion in the setting of cardio myopathy Persistent atrial fibrillation, symptomatic Patient presented with shortness of breath tiredness fatigue was so for the last few weeks, symptoms ongoing for last several months Regular, daily alcohol use Past history of nicotine use Suggest Stop amlodipine Stop IV Lasix Patient is resting comfortably in bed but it no orthopnea or PND Continue ELIQUIS 5 g twice daily for stroke prevention and this was discussed with the patient Spironolactone 12.5 mg by mouth daily dailyy in the evening
[2021-12-30] MEDS ORDERED: ONDANSETRON 4 MG/2 ML VIAL IVP PRN (14:38)
[2021-12-30] MEDS ORDERED: ONDANSETRON 4 MG/2 ML VIAL ONE (14:39)
[2021-12-30] MEDS ORDERED: PROCHLORPERAZINE INJ 10 MG/2 ML VIAL IVP PRN (16:53)
--- NOTE | 2021-12-30 17:50 | P.PN ---
Subjective Progress Note Date: 12/30/21 (delayed charting seen at 1015) Principal diagnosis: shortness of breath Patient is a 81-year-old man who does not follow regularly with a physician with history of osteoarthritis, 100+ pack year smoking history, currently ex-smoker, presented with dyspnea on exertion. In the emergency department he underwent an extensive evaluation. Initial laboratory analysis did show carbon dioxide of 19 and potassium of 5.6. His troponin was mildly elevated at 0.018. BNP was 508 120 and lactic acid was 1.7. D-dimer was elevated at 2.65. Chest x-ray showed bilateral apical pulmonary fibrotic changes and hyper inflation consistent with COPD. CTA of the chest showed left lower lobe posterior segmental and subsegmental pulmonary embolism, COPD PUD, bilateral pleural effusions, and enlarged hilar mediastinal lymph nodes. He subsequently diagnosed with a pulmonary embolism. His heart rate was noted to be between 90 and 110 in EKG showed atrial fibrillation. He was started on a Cardizem drip and then transitioned to oral metoprolol, Lasix, and heparin drip. He was admitted for further monitoring. He was seen by cardiology and pulmonary. He underwent an echocardiogram that showed an ejection fraction of 30-35% and moderate to severe aortic stenosis. He was started on metoprolol, Cozaar, and eliquis. He also was started on Aldactone. Patients seen and examined at bedside. He states his breathing is back to normal and he is overall feeling well. He states he has not followed with a physician in 15 years but used to see Dr. Jacobson in [place]. We discussed his new diagnosis of A fib and heart fiailure. General: non toxic, no distress, appears at stated age Derm: warm, dry Head: atraumatic, normocephalic, symmetric Eyes: EOMI, no lid lag, anicteric sclera Mouth: no lip lesion, mucus membranes moist Cardiovascular: S1S2 reg, no murmur, positive posterior tibial pulse bilateral, Lungs: CTA bilateral, no rhonchi, no rales , no accessory muscle use Abdominal: soft, nontender to palpation, no guarding, no appreciable organomegaly Ext: no gross muscle atrophy, no edema, no contractures Neuro: CN II-XI grossly intact, no focal neuro deficits Psych: Alert, oriented, appropriate affect Assessment/plan: New-onset systolic congestive heart failure with ejection fraction 30-35% New-onset atrial fibrillation with rapid ventricular response Moderate to severe aortic stenosis -Discussed all the patient likely does not have a pulmonary embolism requiring anticoagulation and that his dyspnea is more likely secondary to his systolic congestive heart failure and atrial fibrillation with rapid ventricular response. -Cardiology recommendations appreciated -Metoprolol, Cozaar, Aldactone -Eliquis -Telemetry monitoring -Anticipate home in a.m. COPD without exacerbation -Pulmonary recommendations: Will need PFTs upon discharge -Symbicort, when necessary nebulizers Home in a.m. Objective - Vital Signs Vital signs: Vital Signs Temp 97.9 F 12/30/21 08:00 Pulse 76 12/30/21 14:00 Resp 18 12/30/21 14:00 BP 126/78 12/30/21 08:00 Pulse Ox 93 L 12/30/21 08:00 FiO2 Intake & Output 12/29/21 12/30/21 12/30/21 18:59 06:59 18:59 Intake Total 64.682 283.669 236 Balance 64.682 283.669 236 Weight 77.111 kg Intake: IV 5 Invasive Line 1 5 Intake, IV Titration 59.682 83.669 Amount Heparin Sod,Pork in 0.45% 59.682 83.669 NaCl 25,000 unit In 0.45 % NaCl 1 250ml.bag @ 12 UNITS/KG/HR 9.253 mls/hr IV .Q24H [facility] Rx#: [id number] Oral 200 236 Other: Voiding Method Toilet Toilet # Voids 1 1 - Labs CBC & Chem 7: 12/30/21 07:39 12/30/21 07:39 Labs: Abnormal Lab Results - Last 24 Hours (Table) 12/29/21 12/30/21 12/30/21 Range/Units 17:36 00:29 07:39 APTT 34.9 H 35.2 H (22.0-30.0) sec Sodium 136 L (137-145) mmol/L BUN 30 H (9-20) mg/dL 12/30/21 Range/Units 07:39 APTT 50.2 H (22.0-30.0) sec Sodium (137-145) mmol/L BUN (9-20) mg/dL
[2021-12-30 17:53] LABS: Chol/HDL Ratio 2.53 Ratio; LDL Cholesterol,Calculated 73.5 mg/dL (0.0-131.0); VLDL Calculation 14.72 mg/dL (5.00-40.00)
[2021-12-30] MEDS: LOSARTAN 25 MG TAB PO SCH (19:59)
[2021-12-31 07:45] LABS: Basophils % (A) 0 %; Eosinophils # (A) 0.1 k/uL (0-0.7); Eosinophils % (A) 1 %; HCT 49.4 % (39.0-53.0); HGB 15.4 gm/dL (13.0-17.5); Lymphocytes # (A) 0.6 k/uL (1.0-4.8); Lymphocytes % (A) 5 %; MCH 30.6 pg (25.0-35.0); MCHC 31.2 g/dL (31.0-37.0); MCV 98.1 fL (80.0-100.0); Mean Platelet Volume 10.8; Monocytes # (A) 0.6 k/uL (0-1.0); Monocytes % (A) 6 %; Neutrophils # (A) 9.5 k/uL (1.3-7.7); Neutrophils % (A) 87 %; Platelet Count 172 k/uL (150-450); RBC 5.04 m/uL (4.30-5.90); RDW 12.8 % (11.5-15.5); WBC 10.9 k/uL (3.8-10.6)
[2021-12-31 08:10] LABS: African American GFR (CKD) >90 (>60 ml/min/1.73 sqM); Anion Gap 5 mmol/L; Blood Urea Nitrogen 29 mg/dL (9-20); Calcium 8.6 mg/dL (8.4-10.2); Carbon Dioxide 29 mmol/L (22-30); Chloride 103 mmol/L (98-107); Glucose 116 mg/dL (74-99); Magnesium 1.9 mg/dL (1.6-2.3); Non-African American GFR(CKD) 80 (>60 ml/min/1.73 sqM); Sodium 137 mmol/L (137-145)
[2021-12-31] MEDS: LOSARTAN 25 MG TAB PO SCH (08:54)
[2021-12-31] MEDS: APIXABAN 5 MG TAB PO SCH (08:54)
[2021-12-31] MEDS: SYMBICORT 160-4.5 MCG INHALER INHALATION SCH (08:58)
[2021-12-31] MEDS ORDERED: METOPROLOL SUCCINATE (ER) 25 MG TAB.ER.24H PO SCH (09:00)
[2021-12-31 09:07] VITALS: RESP 20; TEMP 98.1
--- NOTE | 2021-12-31 11:05 | P.PN ---
Subjective Progress Note Date: 12/31/21 This is a 81-year-old white male patient, former smoker, does not have a primar y care provider, and has not had a regular physical or seen a primary care physician in 10-15 years other than at an urgent care clinic in June 2021 when he had an episode of tracheobronchitis and was treated with steroids and antibiotics. He states chest x-ray at that time at the urgent care clinic and for urine did not show evidence of pneumonia, and he tested negative for COVID 19. Denies any history of heart disease, no hypertension, no history of diabetes. Does not see a lung specialist. Patient is not on oxygen at home, and does not have any inhalers or breathing treatments. No other prescription medications. On 12/29/2021 patient presented to the emergency department with complaints of worsening dyspnea that has been progressing over a period of 2 weeks. Patient states he was hardly able to walk because of worsening dyspnea. Denied any fever or chills, does admit to coughing up some yellow colored phlegm. No complaints of hemoptysis, no chest pain. No nausea or vomiting, no diarrhea, no abdominal pain, no anal or swelling in his calves. Denied any weight loss, does report having to sleep in the chair. Chest x-ray in the emergency room showed COPD changes and slightly increased cardiac transverse diameter, with a suggestion of cardiomegaly. EKG showed atrial fibrillation with rapid ventricular response with a rate of 153 BPM. Patient was started on Cardizem infusion for rate control. His CBC was within normal limits with white count of 7.1, hemoglobin of 16.4, d-dimer was 2.65, the rest of the coordination profile was unremarkable, sodium is 138, potassium is 5.6, chloride is 108, CO2 is 19, B1 is 32, creatinine 0.87, plasma lactic acid is 1.7, total bilirubin is 3.0, LFTs are within normal limits, proBNP was elevated at 5820, troponin level was negative at 0.08. In view of elevated d-dimer level CTA chest has been completed showing reduced enhancement of the left lower lobe posterior segmental and subsegmental pulmonary arteries likely related to technical factors however underlying PE could not be completely excluded, however there was no evidence of major with central pulmonary embolism. There were COPD changes and bilateral pleural effusions, enlarged hilar and mediastinal lymph nodes measuring up to 13 mm and subcarinal group, and 14 mm in the right hilum and 10 mm in the precarinal location. Echocardiogram has been completed and the results are pending, patient was started on IV Lasix 40 mg. he is resting on the gurney in the emergency department, room air pulse ox is 98%, remains in A. fib with a better controlled rate currently at 81 BPM. Remains on Cardizem infusion, he states he is feeling better, breathing a bit more comfortably, lung sounds reveal evidence of coarse crackles throughout especially at bilateral bases. No wheezing noted 12/30/2021, the patient is feeling much better and the patient is currently on room air oxygen. He reports marked improvement in his shortness of breath since yesterday. Noted the patient was in A. fib RVR in addition to decompensated heart failure. Echocardiogram was completed yesterday and the patient was found to have global hypokinesis with an ejection fraction of around 30-35%. At the same time, there was moderate to severe degree of aortic stenosis with a peak gradient of 22 mmHg and mild aortic regurgitation. Cannot exclude the possibility of a bicuspid aortic valve. The mitral valve was essentially showing no major abnormalities. The patient's current cardiac rhythm is still in atrial fibrillation although the rate is controlled. He was taken off the IV heparin and he was started on Eliquis 5 mg by mouth twice a day. He is still receiving Lasix 20 mg IV every 24 hours and is also on Toprol 25 mg by mouth twice a day. He has been in a negative fluid balance. No angina. No palpitations. No chest pain at this point in time. 9 2021, the patient is on room air oxygen. He is in atrial fibrillation with a controlled rate. Echocardiogram showed a systolic heart failure with an ejection fraction of 30-35% along with moderate to severe aortic stenosis and the patient has an ongoing cardiac murmur in place. The patient was on Lasix for diuresis and this has been discontinued. He is also on metoprolol for rate control and he was started on Aldactone . In terms of his COPD, I have him on Symbicort and DuoNeb nebulized treatments around the clock. The blood work from today shows a white cell count of 10.9 with a hemoglobin of 15.4. Creatinine is at 0.9 with a BUN of 29 and the sodium level of 137. He is on long-term anticoagulation with Eliquis. No other complaints for now. His resting comfortably in bed. Breath sounds of improved considerably and the patient's breathing is nonlabored at this point in time. Objective - Vital Signs Vital signs: Vital Signs Temp 98.1 F 12/31/21 08:50 Pulse 84 12/31/21 08:50 Resp 20 12/31/21 08:50 BP 107/63 12/31/21 08:50 Pulse Ox 96 12/31/21 09:30 FiO2 Intake & Output 12/30/21 12/31/21 12/31/21 18:59 06:59 18:59 Intake Total 236 240 Output Total 300 Balance 236 -60 Intake: Oral 236 240 Output: Urine 300 Other: Voiding Method Toilet Toilet - Exam GENERAL EXAM: Alert, pleasant, 81-year-old white male, resting on the gurney, breathing fairly comfortably, on room air with a pulse ox of 98% comfortable in no apparent distress. HEAD: Normocephalic/atraumatic. EYES: Normal reaction of pupils, equal size. Conjunctiva pink, sclera white. NOSE: Clear with pink turbinates. THROAT: No erythema or exudates. NECK: No masses, no JVD, no thyroid enlargement, no adenopathy. CHEST: No chest wall deformity. Symmetrical expansion. LUNGS: Equal air entry with coarse bilateral crackles CVS: Irregular rate and rhythm, normal S1 and S2, no gallops, no murmurs, no rubs ABDOMEN: Soft, nontender. No hepatosplenomegaly, normal bowel sounds, no guarding or rigidity. EXTREMITIES: No clubbing, no edema, no cyanosis, 2+ pulses and upper and lower extremities. MUSCULOSKELETAL: Muscle strength and tone normal. SPINE: No scoliosis or deformity SKIN: No rashes CENTRAL NERVOUS SYSTEM: Alert and oriented -3. No focal deficits, tone is normal in all 4 extremities. PSYCHIATRIC: Alert and oriented -3. Appropriate affect. Intact judgment and insight. - Labs CBC & Chem 7: 12/31/21 07:24 12/31/21 07:24 Labs: Abnormal Lab Results - Last 24 Hours (Table) 12/31/21 12/31/21 Range/Units 07:24 07:24 WBC 10.9 H (3.8-10.6) k/uL Neutrophils # 9.5 H (1.3-7.7) k/uL Lymphocytes # 0.6 L (1.0-4.8) k/uL BUN 29 H (9-20) mg/dL Glucose 116 H (74-99) mg/dL Assessment and Plan Plan: Assessment: Acute hypoxic respiratory failure likely related to new onset of CHF, with cardiac heart failure and ejection fraction of 30-35%, improved and the patient is currently on room air oxygen Systolic heart failure with an ejection fraction of 30-35% Mod- severe aortic stenosis Acute shortness of breath secondary to decompensated CHF/pulmonary edema, improved. The patient also had A. fib RVR, recovered and the patient's rate is controlled for now and shortness of breath is also improved. COPD Atrial fibrillation, chronic, rate controlled Chronic smoker Diverticular disease/history of diverticulitis Plan: Discharged home on Symbicort maintenance, albuterol HFA on an as-needed basis. No need for systemic steroids Cardiac medications as per cardiology. The patient on Eliquis prolonged demented elevation and the patient is on metoprolol for rate control and losartan for BP control. The patient is doing well. No smoking. Outpatient PFT. Outpatient follow-up regarding his mother to severe aortic stenosis.
[2021-12-31 12:39] VITALS: BP 114/56; PULSE 83
--- NOTE | 2021-12-31 13:06 | P.PN ---
Subjective This is a pleasant 81-year-old male past medical history significant for former nicotine dependence quit 6 years ago. 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 We have been asked to see in consultation for atrial fibrillation with RVR. Patient presents to the emergency department with symptoms of exertional dyspnea for 2 weeks. Prior to this he denies any complaints. Starting 2 weeks ago he noticed that he was having worsening shortness of breath with activity. He states he normally walks a few blocks, doing his daily activities without any dy spnea. Patient found to be in atrial fibrillation with RVR HR 150s, Started on IV Cardizem bolus and drip and IV Heparin. He was also found to be hypokalemic with a potassium 5.6. And also found to have cardiomyopathy with EF 30-35%. DIAGNOSTICS Echocardiogram revealed an EF of 3035%, grade 3 diastolic dysfunction, moderate to severe low flow low gradient aortic stenosis with peak/mean gradient of 22 mmHg/10 mmHg, mild mitral regurgitation, mild aortic regurgitation, cannot exclude bicuspid aortic valve, mild tricuspid regurgitation 12/31/2021 Patient seen and examined at bedside, no acute distress. He denies any chest pain or shortness of breath, orthopnea or PND. He continues to be in atrial fibrillation rates are relatively controlled. Labs, sodium 137, potassium 5.0, BUN 29, serum creatinine 0.9, magnesium 1.9 PHYSICAL EXAMINATION Vitals Blood pressure 121/71, heart rate 83, afebrile, oxygen saturations 96% on room air CONSTITUTIONAL: No apparent distress. HEENT: Neck Supple. No JVD. No carotid bruit. CHEST EXAMINATION: Lungs are diminished to auscultation. No chest wall tenderness is noted on palpation or with deep breathing. HEART EXAMINATION: Irregular rate and rhythm. S1, S2 heard. Systolic murmur at right sternal border. ABDOMEN: Soft, nontender. Positive bowel sounds. EXTREMITIES: 2+ peripheral pulses, no lower extremity edema and no calf tenderness. NEUROLOGIC EXAMINATION: Patient is awake, alert and oriented x3. 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 Allred. From a cardiology perspective, patient is stable ok to discharge later today. Nurse practitioner note has been reviewed by physician. Signing provider agrees with the documented findings, assessment, and plan of care. Objective - Vital Signs Vital signs: Vital Signs Temp 98.1 F 12/31/21 12:30 Pulse 83 12/31/21 12:30 Resp 20 12/31/21 12:30 BP 114/56 12/31/21 12:30 Pulse Ox 96 12/31/21 12:30 FiO2 Intake & Output 12/30/21 12/31/21 12/31/21 18:59 06:59 18:59 Intake Total 236 240 Output Total 300 Balance 236 -60 Intake: Oral 236 240 Output: Urine 300 Other: Voiding Method Toilet Toilet - Labs CBC & Chem 7: 12/31/21 07:24 12/31/21 07:24 Labs: Abnormal Lab Results - Last 24 Hours (Table) 12/31/21 12/31/21 Range/Units 07:24 07:24 WBC 10.9 H (3.8-10.6) k/uL Neutrophils # 9.5 H (1.3-7.7) k/uL Lymphocytes # 0.6 L (1.0-4.8) k/uL BUN 29 H (9-20) mg/dL Glucose 116 H (74-99) mg/dL
--- NOTE | 2021-12-31 14:19 | P.DS ---
Providers Date of admission: 12/29/21 11:31 Expected date of discharge: 12/31/21 Attending physician: Tushar Alatorre MD Consults: 12/29/21 11:31 Consult Physician Routine Consulting Provider: Stefania Stiles Consult Reason/Comments: New-onset atrial fibrillation Do you want consulting provider notified?: Yes 12/29/21 13:53 Consult Physician Routine Consulting Provider: Eric Miller Consult Reason/Comments: COPD Do you want consulting provider notified?: Yes Primary care physician: Stated None Hospital Course: Discharge Diagnosis: Acute exacerbation of new onset systolic congestive heart failure with ejection fraction 30-35% Cardiomyopathy-nonischemic versus ischemic Moderate to severe aortic stenosis Paroxysmal Atrial fibrillation with rapid ventricular response Hypokalemia, resolved Daily alcohol intake Hypertension Moderate to severe aortic stenosis Pulmonary embolism ruled out Hospital Course: Patient is a 81-year-old man who does not follow regularly with a physician with history of osteoarthritis, 100+ pack year smoking history, currently ex-smoker, presented with dyspnea on exertion. In the emergency department he underwent an extensive evaluation. Initial laboratory analysis did show carbon dioxide of 19 and potassium of 5.6. His troponin was mildly elevated at 0.018. BNP was 508 120 and lactic acid was 1.7. D-dimer was elevated at 2.65. Chest x-ray showed bilateral apical pulmonary fibrotic changes and hyper inflation consistent with COPD. CTA of the chest showed left lower lobe posterior segmental and subsegmental pulmonary embolism, COPD PUD, bilateral pleural effusions, and enlarged hilar mediastinal lymph nodes. He subsequently diagnosed with a pulmonary embolism. His heart rate was noted to be between 90 and 110 in EKG showed atrial fibrillation. He was started on a Cardizem drip and then transitioned to oral metoprolol, Lasix, and heparin drip. He was admitted for further monitoring. He was seen by cardiology and pulmonary. He underwent an echocardiogram that showed an ejection fraction of 30-35% and moderate to severe aortic stenosis. He was started on metoprolol, Cozaar, and eliquis. He also was started on Aldactone. His potassium did elevated to 5 he was taken off of Aldactone and his Cozaar dosing was decreased. He continued to do well. His orthostatic vitals were negative. He was asymptomatic. He was determined stable for discharge. Follow-up: Reestablish with Dr. Jacobson for primary care physician, Dr. Allred in [address] Miller on 01/05/22. Patient seen and examined at bedside. He has no complaints currently. He denies any shortness of breath, chest pain, lower extremity edema. He feels back to baseline and is excited to go home. Vital signs reviewed and stable. General: non toxic, no distress, appears at stated age, thin Derm: warm, dry Head: atraumatic, normocephalic, symmetric Eyes: EOMI, no lid lag, anicteric sclera Mouth: no lip lesion, mucus membranes moist Cardiovascular: S1S2 reg, no murmur, positive posterior tibial pulse bilateral, Lungs: CTA bilateral, no rhonchi, no rales , no accessory muscle use Abdominal: soft, nontender to palpation, no guarding, no appreciable organomegaly Ext: no gross muscle atrophy, no edema, no contractures Neuro: CN II-XI grossly intact, no focal neuro deficits Psych: Alert, oriented, appropriate affect A total of 34 minutes of time were spent preparing this complex discharge summary. Patient was discharged on 12/31/21. Patient Condition at Discharge: Stable Plan - Discharge Summary Discharge Rx Participant: Yes New Discharge Prescriptions: New Albuterol Sulfate [Albuterol Sulfate Hfa] 2 puff PO Q6H PRN #8.5 gm PRN Reason: Shortness Of Breath Losartan [Cozaar] 12.5 mg PO DAILY #30 tab Apixaban [Eliquis] 5 mg PO BID 30 Days #60 tab Budesonide-Formot 160-4.5 Mcg [Symbicort 160-4.5 Mcg Inhaler] 2 puff INHALATION RT-BID #1 each Metoprolol Succinate (ER) [Toprol XL] 25 mg PO DAILY #30 tab Discharge Medication List Apixaban [Eliquis] 5 mg PO BID 30 Days #60 tab 12/30/21 [Rx] Albuterol Sulfate [Albuterol Sulfate Hfa] 2 puff PO Q6H PRN #8.5 gm 12/31/21 [Rx] Budesonide-Formot 160-4.5 Mcg [Symbicort 160-4.5 Mcg Inhaler] 2 puff INHALATION RT-BID #1 each 12/31/21 [Rx] Losartan [Cozaar] 12.5 mg PO DAILY #30 tab 12/31/21 [Rx] Metoprolol Succinate (ER) [Toprol XL] 25 mg PO DAILY #30 tab 12/31/21 [Rx] Follow up Appointment(s)/Referral(s): Juan Allred MD [STAFF PHYSICIAN] - 1 Week (Follow-up Maira Manriquez in 1 week) None,Stated [Primary Care Provider] - 1-2 days Claudia Jacobson MD [STAFF PHYSICIAN] - 1-2 Days Eric Miller MD [STAFF PHYSICIAN] - 01/05/22 10:00 am Ambulatory/Diagnostic Orders: Basic Metabolic Panel [LAB.AMB] Time Frame: 3 Days, Location: None Selected Patient Instructions/Handouts: Metoprolol (By mouth), Spironolactone (By mouth), Apixaban (By mouth), Heart Failure (DC), A-fib (Atrial Fibrillation) (ED), Heart Healthy Diet (DC) Activity/Diet/Wound Care/Special Instructions: Activity: As tolerated Diet: Heart healthy Special Instructions: Copay for Radha is $36/month. 1st Free month coupon will be applied in [facility] pharmacy. Take home medications prescribed Check your weight daily. Call the cardiology office if you gain more than 3 pounds in one day or more than 5 pounds in 3 days. Abstain from alcohol Thank you for entrusting us with your care, we wish you well and your journey to better health Discharge Disposition: HOME SELF-CARE
[2022-01-01] MEDS ORDERED: LOSARTAN 25 MG TAB PO SCH (09:00)
== END 2021-12-31 17:36 | disposition home or self-care (01) ==
LOC: EC 08:10 → 3SCARD 11:31 → INTOOBSV 11:31 → 3SCARD 12:38 → UNDODISIN 12-31 17:36
PROVIDERS: ADMIT Internal Medicine; ATTEND Internal Medicine
DX: I11.0 Hypertensive heart disease with heart failure (principal); I50.21 Acute systolic (congestive) heart failure; J96.01 Acute respiratory failure with hypoxia; I48.0 Paroxysmal atrial fibrillation; I42.9 Cardiomyopathy, unspecified; J43.9 Emphysema, unspecified; I08.3 Combined rheumatic disorders of mitral, aortic and tricuspid valves; M19.90 Unspecified osteoarthritis, unspecified site; E87.5 Hyperkalemia; E87.8 Other disorders of electrolyte and fluid balance, not elsewhere classified; R79.89 Other specified abnormal findings of blood chemistry; K57.90 Diverticulosis of intestine, part unspecified, without perforation or abscess without bleeding; Z28.310 Unvaccinated for COVID-19; Z87.11 Personal history of peptic ulcer disease; Z98.41 Cataract extraction status, right eye; Z98.42 Cataract extraction status, left eye; Z96.1 Presence of intraocular lens; Z87.891 Personal history of nicotine dependence; Z98.890 Other specified postprocedural states; Z82.49 Family history of ischemic heart disease and other diseases of the circulatory system; Z81.1 Family history of alcohol abuse and dependence; Z82.0 Family history of epilepsy and other diseases of the nervous system
CPT/HCPCS: 96376 ×2; 96366 ×3; 96375 ×2; 96365; 96367; 99291; 36415; 94640 ×4; 93005; 93306; 85379; 83880; 80061; 80053; 80048 ×3; 84443; 83605; 83735 ×3; 84484; 85025 ×3; 85610 ×2; 85730 ×2; 83036; 71046; 71275; G0378 ×3; J0780; J1940 ×2; J1644 ×3; Q9967

== ENCOUNTER → 2022-02-22 | Outpatient (CLI) | payer MEDICARE ==
[2022-02-22 15:05] LABS: HCT 49.7 % (39.6-50.0); HGB 15.4 g/dL (13.0-17.0); MCH 29.7 pg (27.0-32.0); MCV 95.9 fL (80.0-97.0); NRBC Per 100 WBC 0 /100 WBCS (0.0-0.0); Platelet Count 272 X 10*3/uL (140-440); RBC 5.18 X 10*6/uL (4.40-5.60); RDW 13.8 % (11.5-14.5); WBC 8.07 X 10*3/uL (4.50-10.00)
[2022-02-22 15:18] LABS: African American GFR (CKD) 76.1 (60.0-200.0); Anion Gap 13.5 mmol/L (10.00-18.00); Blood Urea Nitrogen 24.9 mg/dL (9.0-27.0); Carbon Dioxide 23.6 mmol/L (20.0-27.5); Non-African American GFR(CKD) 65.7 (60.0-200.0)
== END | disposition home or self-care (01) ==
LOC: LABPAT 09:36
PROVIDERS: ATTEND Internal Medicine Clinical Cardiac Electrophysiology
DX: Z01.812 Encounter for preprocedural laboratory examination (principal); I48.19 Other persistent atrial fibrillation; I48.3 Typical atrial flutter; I25.5 Ischemic cardiomyopathy
CPT/HCPCS: 80051; 82565; 84520; 85027

== ENCOUNTER 2022-02-25 11:26 | Day surgery (SDC) | payer MEDICARE ==
[2022-02-23 10:23] VITALS: BMI 19.8
[2022-02-25] MEDS: SODIUM CHLORIDE 0.9% 1,000 ML IV SCH (12:50)
[2022-02-25] MEDS ORDERED: FAMOTIDINE 20 MG/2 ML VIAL ONE (14:35)
[2022-02-25] MEDS ORDERED: METOCLOPRAMIDE 5 MG/ML 2 ML VIAL ONE (14:35)
[2022-02-25] MEDS ORDERED: FAMOTIDINE 20 MG/2 ML VIAL IV STA (14:37)
[2022-02-25] MEDS ORDERED: METOCLOPRAMIDE 5 MG/ML 2 ML VIAL IVP STA (14:37)
[2022-02-25] MEDS ORDERED: LIDOCAINE URO-JET JELLY 2% 5 ML KIT ONE (15:24)
[2022-02-25] MEDS ORDERED: LIDOCAINE 2% INJ 20 MG/ML (2 ML VIAL) ONE (15:26)
[2022-02-25] MEDS ORDERED: SUCCINYLCHOLINE CHLORIDE 200 MG/10 ML VIAL IV ONE (15:26)
[2022-02-25] MEDS ORDERED: HEPARIN SODIUM,PORCINE 10,000 UNIT/ML 1 ML VIAL ONE (15:26)
[2022-02-25] MEDS ORDERED: ePHEDrine 50 MG/ML 1 ML VIAL ONE (15:26)
[2022-02-25] MEDS ORDERED: fentaNYL (PF) 50 MCG/ML 2 ML AMP ONE (15:26)
[2022-02-25] MEDS ORDERED: ETOMIDATE 2 MG/ML 10 ML VIAL ONE (15:26)
[2022-02-25] MEDS ORDERED: PHENYLEPHRINE-0.9% NACL SYG 1,000 MCG/10 ML SYRINGE ONE (15:26)
[2022-02-25] MEDS ORDERED: ONDANSETRON 4 MG/2 ML VIAL ONE (15:26)
[2022-02-25] MEDS ORDERED: MIDAZOLAM 2 MG/2 ML VIAL ONE (15:26)
[2022-02-25] MEDS ORDERED: LIDOCAINE URO-JET JELLY 2% 5 ML KIT URETHRAL ONE (15:42)
--- NOTE | 2022-02-25 15:47 | P.HPCAR ---
History of Present Illness This is Dr. Allred dictating an H/P on this patient The patient was interviewed and examined IMPRESSION / ASSESSMENT: Typical atrial flutter with RVR, persistent History of persistent atrial fibrillation, currently on amiodarone Severe LV dysfunction ejection fraction 30-35% Severe left atrial enlargement Moderate to severe aortic stenosis, PLAN: EP study/Atrial flutter ablation Reassessment of aortic valve in sinus rhythm Reassessment of LV function in sinus rhythm HPI Patient was admitted to the hospital with heart failure symptoms and A. fib with RVR He was started on oral amiodarone While this did not result in conversion to sinus rhythm, his arrhythmia organized than atrial tachycardia that is suggestive of atrial flutter He has severe cardio myopathy with severely reduced aortic valve leaflet excursion ROS: No fever chills or rigors, no cough, phlegm or expectoration, no nausea, vomiting or diarrhea, no hematuria, dysuria, no musculoskeletal complaints, no strokes or seizures, no skin lesions. EXAMINATION: Blood pressure 194/96. His mercury afebrile 96.9F rhythm irregular but controlled rates at rest Breath sounds are reduced bilaterally with bilateral scattered rhonchi no crackles Ejection systolic murmur No lower extremity edema No JVD REVIEW OF LABS, ECG & MEDICAL DATA Coronavirus PCR non-detectable He is on ELIQUIS, losartan and metoprolol succinate Physical Exam Vitals: Vital Signs Temp Pulse Resp BP Pulse Ox 02/25/22 13:00 194/96 02/25/22 12:55 96.9 F L 82 16 226/112 99 Intake and Output 02/25/22 02/25/22 02/25/22 06:59 14:59 22:59 Intake Total 450 Balance 450 Intake: IV 450 Other: Weight 63.9 kg Past Medical History Past Medical History: Atrial Fibrillation Additional Past Medical History / Comment(s): SEE DR ALLRED'S H&P History of Any Multi-Drug Resistant Organisms: None Reported Past Surgical History: Hernia Repair, Tonsillectomy Additional Past Surgical History / Comment(s): R inguinal hernia repair, colonoscopy, bilateral cataract removal/lens implants Past Anesthesia/Blood Transfusion Reactions: No Reported Reaction Past Psychological History: No Psychological Hx Reported Smoking Status: Former smoker Past Alcohol Use History: None Reported Additional Past Alcohol Use History / Comment(s): pt no longer drinks alcohol, previously use to drink 3-4 beers daily Past Drug Use History: None Reported - Past Family History Father Additional Family Medical History / Comment(s): Father was a drinker. possible heart problems Mother Family Medical History: No Reported History Additional Family Medical History / Comment(s): . Physical Examination Vital Signs Temp Pulse Resp BP Pulse Ox 02/25/22 13:00 194/96 02/25/22 12:55 96.9 F L 82 16 226/112 99 Intake and Output 02/25/22 02/25/22 02/25/22 06:59 14:59 22:59 Intake Total 450 Balance 450 Intake: IV 450 Other: Weight 63.9 kg Results Current Medications Generic Name Dose Route Start Last Admin Trade Name Freq PRN Reason Stop Dose Admin Sodium Chloride 1,000 mls @ 50 mls/hr 02/25/22 07:05 02/25/22 12:50 Saline 0.9% IV 03/27/22 07:06 450 mls .Q20H SHELDON Administration Intake and Output 02/25/22 02/25/22 02/25/22 06:59 14:59 22:59 Intake Total 450 Balance 450 Intake: IV 450 Other: Weight 63.9 kg Patient Weight 02/26/22 06:59 Weight 63.9 kg
[2022-02-25] MEDS ORDERED: LIDOCAINE 2% INJ 20 MG/ML SQ ONE (16:04)
[2022-02-25] MEDS ORDERED: LIDOCAINE 1% INJ 10MG/ML (30 ML VIAL-PF) SQ ONE ×2 (16:11)
[2022-02-25] MEDS ORDERED: HEPARIN SODIUM (1,000 UNIT/ML) 1,000 UNIT in SODIUM CHLORIDE 0.9% 1,000 ML IRRIGATION ONE (19:03)
[2022-02-25] MEDS ORDERED: HEPARIN SOD,PORK IN 0.45% NACL 25,000 UNIT in 0.45% NACL 1 250ML.BAG IV ONE (19:04)
[2022-02-25] MEDS ORDERED: ACETAMINOPHEN IV (For NPO) 1,000 MG in EMPTY BAG 1 BAG IVPB ONE (19:28)
[2022-02-25] MEDS ORDERED: ACETAMINOPHEN TAB 325 MG TAB PO PRN (19:28)
--- NOTE | 2022-02-25 19:38 | P.EPPROC ---
- EP Procedure Note Electrophysiology Procedure Note: Diagnosis Persistent atrial fibrillation, on amiodarone Failed therapy with an atrial tachycardia, residual rhythm with RVR Severe cardio myopathy Severe aortic stenosis History of smoking Final Diagnosis Typical atrial flutter status post successful ablation Short cavo tricuspid isthmus, the entire isthmus was just one pouch Focal atrial tachycardia in the upper interatrial septum, above the fossa ovalis, successful ablation right and left-side/biatrial ablation Focal atrial tachycardia anterior-inferior left atrial wall, status post successful RF ablation Procedure detail Patient was brought to the EP lab in a fasting state. Written informed consent was obtained prior to the procedure. Venous sheaths were placed in the right left femoral veins Dash sinus catheter was placed. The His bundle catheter high right atrial catheter and The Right Atrium and Left Atrium As Well As in the Right Ventricle Patient Was an Atrial Tachycardia Cycle Length of 270 Ms Intracardiac Echo Revealed No Left Atrial Appendage Thrombus Severe LV Dysfunction Trace Pericardial Effusion Severely Enlarged Right and Left Atria Aortic Stenosis Cavo Tricuspid Isthmus Was Mapped 3-D Mapping Was Performed Successful Ablation Was Performed with a Mild Increase in the Cycle Length of the Tachycardia However despite Successful Ablation in the Tachycardia Continued The Right Atrium Was Then Mapped and the Earliest Site Was Localized to the Upper Interatrial Septum on the above the Fossa Ovalis On Intracardiac Echo This Area Was Mapped to the Thick Upper Interatrial Septum RF Ablations Applied from the Right Side First How the Tachycardia Continued Left and Right Transseptal Catheterization Was Performed with Intracardiac Echo Guidance RA Pressure 12/7/10 LA Pressure 26/2/15 The Sheath Was Placed in the Left Atrium Left Atrial Mapping Was Performed and the Earliest Site Was Localized to the Upper Interatrial Septum in Juxtaposition to the Right-Sided Lesions It Appeared That This Was a Micral Reentry in the Region of Fractionated Electrograms RF Ablation Was Applied in That Some Corresponding to the Right-Sided Ablations and to the Earliest Activation Site The Electrograms Were Completely Ablated However the Tachycardia Continued with Minimal Increasing Cycle Length Before We Mapping of the Left Atrium Was Once Again Performed and This Time a Focal Tachycardia Was Noted in the Anterior Inferior Left Atrial Wall RF Ablation Was Performed with Termination of the Tachycardia Following that intracardiac echo revealed no pericardial effusion, reduced LV and RV size and function and dilated atria Left atrial appendage and nausea any thrombus IV heparin was used through the procedure and HV intervals 35 ms sinus cycle length 1252, LA interval 193 and QRS width 125 ms This is a long procedure requiring reversed. Technique for atrial flutter abla tion The cavo tricuspid isthmus was short single pouch but this was successfully ablated with a reversed. Technique and a deflectable sheath Subsequently the right atrium was mapped and the left atrium was mapped and RF ablation was performed by atrial lead to eliminate the upper septal tachycardia However he had a third arrhythmia that required redo and repeat mapping of the left atrium and successful termination of tachycardia with this ablation The transseptal catheterization was difficult on account of significant biatrial enlargement but was performed successfully and without any complications This sheaths had to be placed on the septum and then the dilator with the transseptal needle brought through the sheath for the transseptal puncture
[2022-02-25] MEDS: SYMBICORT 160-4.5 MCG INHALER INHALATION SCH (20:36)
[2022-02-25] MEDS: APIXABAN 5 MG TAB PO SCH (21:23)
[2022-02-26] MEDS: SODIUM CHLORIDE 0.9% 1,000 ML IV SCH (04:26)
[2022-02-26] MEDS: APIXABAN 5 MG TAB PO SCH (07:29)
[2022-02-26 07:55] VITALS: BP 141/68; PULSE 68; RESP 18; TEMP 97.7
[2022-02-26] MEDS: SYMBICORT 160-4.5 MCG INHALER INHALATION SCH (08:17)
[2022-02-26] MEDS ORDERED: LOSARTAN 25 MG TAB PO SCH (09:00)
--- NOTE | 2022-02-26 10:06 | P.DS ---
Providers Attending physician: Juan Allred Primary care physician: Claudia [facility] Course: Patient is doing well. He is resting comfortably in bed in bed Heart rates are in the normal range Twelve-lead EKG shows sinus bradycardia with a mildly prolonged MA interval Afebrile Respirations normal Blood pressure 140/62 mmHg Clear lungs normal, no crackles Murmur of aortic stenosis No lower extremity edema Groins of healed well no hematoma Impression Multiple simultaneous atrial tachycardias, requiring multiple the maps of the right atrium and left atrial Status post ablation for typical atrial flutter, cavo tricuspid isthmus is 1 single pouch Upper into atrial septal atrial tachycardia requiring ablation from the right side as well as from the left side for termination Left atrial anterior wall, anterior inferior focal tachycardia, status post successful ablation Patient went into sinus rhythm following this ablation Severe cardio myopathy Severe aortic stenosis Suggest Complete abstinence from nicotine products, marijuana and alcohol Continue metoprolol succinate 25 mg by mouth daily and losartan 12.5 g by mouth daily Continue ELIQUIS Follow-up with Dr. Allred in 1-2 weeks Discharge home by lunchtime after ambulation in the room and in the hallways Patient Condition at Discharge: Stable Plan - Discharge Summary Discharge Rx Participant: No New Discharge Prescriptions: No Action Albuterol Sulfate [Albuterol Sulfate Hfa] 2 puff PO Q6H PRN #8.5 gm PRN Reason: Shortness Of Breath Losartan [Cozaar] 12.5 mg PO DAILY #30 tab Apixaban [Eliquis] 5 mg PO BID 30 Days #60 tab Budesonide-Formot 160-4.5 Mcg [Symbicort 160-4.5 Mcg Inhaler] 2 puff INHALATION RT-BID #1 each Metoprolol Succinate (ER) [Toprol XL] 25 mg PO DAILY #30 tab Discharge Medication List Apixaban [Eliquis] 5 mg PO BID 30 Days #60 tab 12/30/21 [Rx] Albuterol Sulfate [Albuterol Sulfate Hfa] 2 puff PO Q6H PRN #8.5 gm 12/31/21 [Rx] Budesonide-Formot 160-4.5 Mcg [Symbicort 160-4.5 Mcg Inhaler] 2 puff INHALATION RT-BID #1 each 12/31/21 [Rx] Losartan [Cozaar] 12.5 mg PO DAILY #30 tab 12/31/21 [Rx] Metoprolol Succinate (ER) [Toprol XL] 25 mg PO DAILY #30 tab 12/31/21 [Rx] Follow up Appointment(s)/Referral(s): Juan Allred MD [STAFF PHYSICIAN] - 2 Weeks (Follow-up with primary structural metal worker in 2 weeks) Patient Instructions/Handouts: Cardiac Ablation (DC) Activity/Diet/Wound Care/Special Instructions: Post EP study - Ablation instructions 1. Keep access sites dry for 2 days. 2. No heavy lifting or straining for 2 days. 3. Avoid bending the hips repeatedly for 2 days. 4. You may go up and down stairs slowly Call if the following is noted 1. Bleeding, increasing swelling or pain at the access sites. 2. Increasing chest discomfort, especially upon taking a deep breath. 3. Increasing shortness of breath, at rest or with exertion. 4. Undue cough / phlegm 5. Difficulty or pain while swallowing. 6. Pain or change in color in the extremities. 7. Fever, chills, rigors. 8. Increasing headache or neurologic symptoms. 9. Dizziness, fainting, palpitations The patient must be instructed very strictly to follow these instructions Discharge Disposition: HOME SELF-CARE
== END 2022-02-26 10:17 | disposition home or self-care (01) ==
LOC: CATHEP 11:26 → 6NMEDSUR 19:06 → CATHEP 02-26 10:17
PROVIDERS: ATTEND Internal Medicine Clinical Cardiac Electrophysiology
DX: I48.19 Other persistent atrial fibrillation (principal); I42.0 Dilated cardiomyopathy; I10 Essential (primary) hypertension; Z20.822 Contact with and (suspected) exposure to COVID-19; I48.92 Unspecified atrial flutter; I35.0 Nonrheumatic aortic (valve) stenosis
CPT/HCPCS: 94640; 93462; 93662; 93653; 93655; 87635; C1894; C1769 ×4; C1760; C1766; C1730; C1759; C1893; C1732; J2250; J0330; J1644 ×3; J2765; J2405; J2001 ×2; J3010; J0131; J2370

== ENCOUNTER → 2022-06-24 | Outpatient (CLI) | payer MEDICARE ==
--- NOTE | 2022-06-24 12:06 | CT ---
EXAMINATION TYPE: CT chest w con DATE OF EXAM: 06/24/2022 COMPARISON: 12/29/2021 HISTORY: Localized enlarged lymph nodes. CT DLP: 413 mGycm Automated exposure control for dose reduction was used. CONTRAST: CT scan of the chest is performed with IV Contrast, patient injected with 70ml mL of Isovue 300. FINDINGS: LUNGS: The lungs are grossly clear, there is no concerning parenchymal mass or nodule identified. T here is no pleural effusion or pneumothorax seen. The tracheobronchial tree is patent. Mild upper lo be emphysematous changes. MEDIASTINUM: Previously described mildly prominent right hilar, precarinal and subcarinal lymph nodes are all normal eyes and less than 1 cm. There are no greater than 1 cm hilar or mediastinal lymph no pelon. No pericardial effusion is seen. Thoracic aorta is of normal caliber. The heart is not enlarg ed. UPPER ABDOMEN: No significant abnormality appreciated. OTHER: No additional significant abnormality is seen. IMPRESSION: 1. Normal-appearing hilar and mediastinal lymph nodes. 2. Mild emphysematous changes.
== END | disposition home or self-care (01) ==
LOC: RADCTMAIN 10:46
PROVIDERS: ATTEND Internal Medicine Critical Care Medicine
DX: J43.9 Emphysema, unspecified (principal); R59.0 Localized enlarged lymph nodes
CPT/HCPCS: 82565; 84520; 71260; 36415; Q9967